=== PATIENT | female | born 1945 | race Caucasian/White ===

== ENCOUNTER → 2016-12-01 | Outpatient (CLI) | payer MEDICARE ==
[2016-12-01 11:39] LABS: Non-African American GFR(MDRD) >60 (>60 ml/min/1.73 sqM)
== END | disposition home or self-care (01) ==
LOC: RADMRIMAIN 11:18
PROVIDERS: ATTEND Urology
DX: Z01.812 Encounter for preprocedural laboratory examination (principal); N28.1 Cyst of kidney, acquired
CPT/HCPCS: 36415; 82565

== ENCOUNTER → 2017-08-29 | Outpatient (CLI) | payer MEDICARE ==
[2017-08-29 11:23] LABS: ALT 27 U/L (9-52); AST 19 U/L (14-36); Alkaline Phosphatase 106 U/L (38-126); Anion Gap 7 mmol/L; Blood Urea Nitrogen 21 mg/dL (7-17); Calcium 9.6 mg/dL (8.4-10.2); Carbon Dioxide 27 mmol/L (22-30); Chloride 107 mmol/L (98-107); Glucose 101 mg/dL (74-99); Non-African American GFR(MDRD) >60 (>60 ml/min/1.73 sqM); Potassium 4.5 mmol/L (3.5-5.1); Sodium 141 mmol/L (137-145); Total Bilirubin 0.6 mg/dL (0.2-1.3); Total Protein 6.8 g/dL (6.3-8.2)
--- NOTE | 2017-08-29 12:21 | XR ---
EXAMINATION TYPE: XR chest 2V DATE OF EXAM: 08/29/2017 COMPARISON: None HISTORY: 72-year-old female right kidney neoplasm TECHNIQUE: Frontal and lateral views FINDINGS: The cardiomediastinal silhouette, aorta, and pulmonary vasculature are within normal limits. There is a rounded convexity projecting over the left atrial shadow on the lateral view of uncertain etiology . This area will be included on the patient's scheduled CT and can be assessed at that time. Otherwis e, lungs and pleural spaces are clear. IMPRESSION: A region of rounded convexity projecting over the left atrial shadow on the lateral view of uncertain etiology. This area will be included on the patient's scheduled CT and can be assessed at that time. Otherwise, lungs appear clear.
--- NOTE | 2017-08-29 13:20 | CT ---
EXAMINATION TYPE: CT abdomen pelvis wo/w con DATE OF EXAM: 08/29/2017 HISTORY: Patient has no complaints at time of study. Follow up study for right side renal CA. Small tumor was removed surgically. CT DLP: 3014.9mGycm Automated Exposure Control for Dose Reduction was Utilized. CONTRAST: CT scan of the abdomen and pelvis is performed without and with IV Contrast, patient injected with 10 0 mL of Omnipaque 300. COMPARISON: CT abdomen pelvis June 05, 2016 FINDINGS: LUNG BASES: No significant abnormality is appreciated. LIVER/GB: Cholecystectomy clips are redemonstrated. Liver is diffusely low dense consistent with fatt y infiltration. PANCREAS: No significant abnormality is seen. SPLEEN: No significant abnormality is seen. ADRENALS: No significant abnormality is seen. KIDNEYS: Noncontrast images show interval partial nephrectomy changes right mid kidney laterally with some linear density or sutures felt present in addition there is increase in left upper to mid pole calcifications centrally with at least 6 calculi identified as on coronal images 90 and 91, a few may be layering dependently in a small subcortical cyst at this level. Postcontrast images show symmetri c cortical medullary uptake and excretion bilaterally without evidence of hydronephrosis. Cystic lesi on measures 1.8 x 1.5 cm on current study image 32 series 5 slightly larger versus prior exam, it demarco s have some thin internal septa and minimally thickened left lateral outer wall appreciated image 32 series 5. There are a few small simple appearing parapelvic cysts centrally lower pole level left kid tl. No new or additional worrisome solid or cystic renal mass is present bilaterally BOWEL: Significant colonic diverticulosis is redemonstrated. A few additional diverticula are seen in the left colon. Oral contrast reaches level of the proximal transverse colon. Mild wall thickening n ear level of hepatic flexure and right colon is present. Finding could be product of interval treatme nt change related to right renal neoplasm. UTERUS/ADNEXA: Uterus is surgically absent. There are few scattered pelvic phleboliths. LYMPH NODES: No greater than 1cm abdominal or pelvic lymph nodes are appreciated. OSSEOUS STRUCTURES: No significant abnormality is seen. OTHER: No significant additional abnormality is seen. IMPRESSION: Interval successful treatment of mid pole lateral right renal lesion or neoplasm. There i s enlarging low dense probable cystic lesion with septation and calcification noted upper to mid pole level slightly inferior aspect left kidney in which additional cystic neoplasm cannot be excluded. S urgical referral advised. Patient may be ablation candidate.
== END | disposition home or self-care (01) ==
LOC: RADCTMAIN 10:33
PROVIDERS: ATTEND Urology
DX: N28.89 Other specified disorders of kidney and ureter (principal); Q63.3 Hyperplastic and giant kidney; C64.1 Malignant neoplasm of right kidney, except renal pelvis; Z88.5 Allergy status to narcotic agent
CPT/HCPCS: 80053; 71020; 74178; 36415; Q9967

== ENCOUNTER → 2018-03-20 | Outpatient (CLI) | payer MEDICARE ==
--- NOTE | 2018-03-20 14:41 | XR ---
EXAMINATION TYPE: XR chest 2V DATE OF EXAM: 03/20/2018 COMPARISON: 08/29/2017 TECHNIQUE: PA and lateral views submitted. HISTORY: Malignant neoplasm of the right kidney FINDINGS: The lungs are clear and there is no pneumothorax, pleural effusion, or focal pneumonia. Heart size is prominent. Atherosclerotic change aorta. Biapical pleural thickening. No overt failure. IMPRESSION: 1. No acute process.
[2018-03-20 14:43] LABS: ALT 27 U/L (9-52); AST 22 U/L (14-36); Albumin 4.1 g/dL (3.5-5.0); Alkaline Phosphatase 96 U/L (38-126); Anion Gap 8 mmol/L; Blood Urea Nitrogen 19 mg/dL (7-17); Calcium 9.3 mg/dL (8.4-10.2); Carbon Dioxide 27 mmol/L (22-30); Chloride 104 mmol/L (98-107); Glucose 86 mg/dL (74-99); Potassium 4.1 mmol/L (3.5-5.1); Sodium 139 mmol/L (137-145); Total Bilirubin 0.6 mg/dL (0.2-1.3); Total Protein 6.6 g/dL (6.3-8.2)
--- NOTE | 2018-03-21 07:48 | CT ---
EXAMINATION TYPE: CT abdomen pelvis wo/w con DATE OF EXAM: 03/20/2018 COMPARISON: 08/29/2017 INDICATION: Malignant neoplasm of right kidney. History of partial nephrectomy of left kidney. DLP: 3106.9 mGycm, Automated exposure control for dose reduction was used. CONTRAST: 100ml mL of Isovue M300. Study performed with Oral Contrast TECHNIQUE: Axial images were obtained from above the diaphragm to the pubic rami in the axial plane a t 5 mm thick sections. Reconstructed images are reviewed on the computer in the coronal plane. FINDINGS: Limited CT sections are obtained the lung bases. The lung bases are clear. Small hiatal hernia is p resent. CT ABDOMEN: There is a periumbilical fat-containing hernia. Liver: On postcontrast imaging there is a 1.9-2.2 cm hypodensity within the right mid lateral liver. This may be a hemangioma present previously which appears essentially isodense with liver on delayed contrast imaging. Spleen: Normal Pancreas: Normal Adrenal glands: The adrenal glands are normal. Gallbladder: Surgically absent Kidneys: No hydronephrosis is present. There is a cyst measuring 2.5 cm on the anterior lateral lef t mid kidney. This has enlarged from comparison study. This Hounsfield unit measurement is -6. Contai ns some calcification as well. These calcifications measure 0.6 and 0.4 cm in size. There several mi d left renal stones present, largest measuring 0.8 cm. The Smaller adjacent measures 0.7 cm. No hydr onephrosis is evident. Tiny exophytic cortical renal cyst is likely present at the inferior medial p ole left kidney measuring 0.7 cm. There appears to be some scarring along the right lateral kidney. Along the lateral margin of the r ight mid kidney is a low-density area with heterogenous appearance. This has an Hounsfield unit measu rement of -60 suggesting a fat component. A recurrent mass is not identified. No right renal stones or hydronephrosis is evident. Aorta: Vascular calcification is within the aorta. Inferior vena cava: Normal. CT PELVIS: Loops of bowel within the abdomen and pelvis are normal. Diverticulosis without acute diverticuliti s is through the sigmoid colon. Study is without oral contrast. Appendix: Not visualized. Urinary bladder: Normal. Genitourinary structures: Uterus and ovaries are not identified. Osseous structures: No suspicious lytic or sclerotic lesions. Degenerative disc changes are through t he lumbar spine. IMPRESSIONS: 1. Cyst containing calcifications along the anterolateral left kidney has enlarged slightly from the comparison of 2017. 2. Nonobstructing left renal stones. 3. Low dense area within the cortex of the right kidney without evidence of recurrent mass. 4. Diverticulosis to the sigmoid colon. 5. Suspected hemangioma lateral right liver. 6. Periumbilical fat-containing hernia. 7. Small hiatal hernia
== END | disposition home or self-care (01) ==
LOC: RADCTMAIN 13:50
PROVIDERS: ATTEND Urology
DX: C64.1 Malignant neoplasm of right kidney, except renal pelvis (principal)
CPT/HCPCS: 80053; 71046; 74178; 36415; Q9967

== ENCOUNTER → 2018-10-01 | Outpatient (CLI) | payer MEDICARE ==
--- NOTE | 2018-10-01 11:24 | XR ---
EXAMINATION TYPE: XR chest 2V DATE OF EXAM: 10/01/2018 COMPARISON: 03/20/2018 HISTORY: 73-year-old female follow-up staging history of right renal cell carcinoma. TECHNIQUE: AP and lateral views FINDINGS: Heart upper limits of normal in size. Aorta and pulmonary vasculature within normal limits. Hazy lowe r lung densities related to overlying soft tissue. There is strandy atelectasis posterior base. No co nsolidation or pleural effusion seen. IMPRESSION: Borderline heart size and chronic appearing changes. No acute process seen.
[2018-10-01 16:42] LABS: Albumin 4.4 g/dL (3.80-4.90); Albumin/Globulin Ratio 2.59 (1.20-2.10); Anion Gap 7.6 mmol/L (4.00-12.00); Calcium 9.7 mg/dL (8.7-10.3); Carbon Dioxide 26.4 mmol/L (21.6-31.8); Globulin 1.7 g/dL (1.6-3.3); Potassium 4.9 mmol/L (3.5-5.5); Total Bilirubin 0.5 mg/dL (0.2-1.2); Total Protein 6.1 g/dL (6.2-8.2)
== END | disposition home or self-care (01) ==
LOC: LABWHC1 09:56
PROVIDERS: ATTEND Urology
DX: C64.1 Malignant neoplasm of right kidney, except renal pelvis (principal)
CPT/HCPCS: 36415; 71046; 80053

== ENCOUNTER → 2019-03-30 | Outpatient (CLI) | payer MEDICARE, OTHER ==
[2019-03-30 11:32] LABS: African American GFR (CKD) >90 (>60 ml/min/1.73 sqM); Blood Urea Nitrogen 23 mg/dL (7-17)
--- NOTE | 2019-03-30 13:03 | CT ---
EXAMINATION TYPE: CT abdomen wo/w con DATE OF EXAM: 03/30/2019 COMPARISON: 03/20/2018 HISTORY: Follow up Rt renal CA CT DLP: 1949 mGycm Automated exposure control for dose reduction was used. TECHNIQUE: Helical acquisition of images was performed from the lung bases through the top of iliac crest to include entire abdomen. CONTRAST: Performed with Oral Contrast and without and with IV Contrast, patient injected with 100 mL of Isovue 300. FINDINGS: LUNG BASES: No significant abnormality is appreciated. LIVER/GB: Liver is low attenuation correlate for hepatic steatosis. There is a partially enhancing le rodrigo involving the right lobe of the liver measuring 3.3 cm most typical of a hemangioma with near co mplete contrast fill-in on delayed images. Postcholecystectomy changes noted. PANCREAS: No significant abnormality is seen. SPLEEN: No significant abnormality is seen. ADRENALS: No significant abnormality is seen. KIDNEYS: Cortical loss involving the right kidney suggestive of previous surgery. There is residual f at attenuation seen with no suspicious enhancing lesion. There is a calcification involving the infundibulum and calyx midpole left kidney anteriorly measurin g 1.4 cm. There is a cystic lesion involving the anterior cortex measuring 3 Hounsfield units compati ble simple cyst. There is some calcification within the cyst. Delayed images there is some contrast f illing within the cysts. Therefore a calyceal diverticulum would be the differential diagnosis. No hy dronephrosis. BOWEL: Small hiatal hernia. LYMPH NODES: No significant abnormality is seen. OSSEOUS STRUCTURES: Multilevel degenerative disc disease noted. FREE AIR: No free air is visualized. OTHER: There is a fat-containing anterior abdominal wall hernia which is been previously noted. IMPRESSION: 1. Postsurgical changes with no suspicious appearing renal mass. 2. Left-sided cyst containing calcification is stable. On delayed images there is some contrast noted within the cyst therefore, calyceal diverticulum in the differential diagnosis. 3. Stable nonobstructing 1.3 cm mid pole left renal calculus. 4. Stable appearing hemangioma right lobe of the liver. 5. Stable-appearing. Local hernia
== END | disposition home or self-care (01) ==
LOC: RADCTMAIN 10:55
PROVIDERS: ATTEND Urology
DX: C64.1 Malignant neoplasm of right kidney, except renal pelvis (principal); N28.1 Cyst of kidney, acquired; N20.0 Calculus of kidney; K44.9 Diaphragmatic hernia without obstruction or gangrene; D18.03 Hemangioma of intra-abdominal structures; Z98.890 Other specified postprocedural states; Z88.5 Allergy status to narcotic agent
CPT/HCPCS: 82565; 84520; 74170; 36415; Q9967

== ENCOUNTER → 2019-06-17 | Outpatient (CLI) | payer MEDICARE, OTHER ==
--- NOTE | 2019-06-17 13:22 | XR ---
EXAMINATION TYPE: XR chest 2V DATE OF EXAM: 06/17/2019 COMPARISON: 10/01/2018 INDICATION: 10/01/2018 TECHNIQUE: Frontal and lateral views of the chest are obtained. FINDINGS: The heart size is normal. The pulmonary vasculature is normal. The lungs are clear. Very small hiatal hernia is likely present. This was evident on the prior exami nation the 03/30/2019 CT abdomen pelvis study. IMPRESSION: 1. No acute pulmonary process. 2. Suspected small hiatal hernia identified on the lateral projection
[2019-06-17 18:59] LABS: African American GFR (CKD) 99.6 (60.0-200.0); Albumin 4.2 g/dL (3.80-4.90); Albumin/Globulin Ratio 2.63 (1.60-3.17); Anion Gap 6.8 mmol/L (4.00-12.00); BUN/Creat Ratio 25.71 Ratio (12.00-20.00); Calcium 9.2 mg/dL (8.7-10.3); Carbon Dioxide 28.2 mmol/L (21.6-31.8); Globulin 1.6 g/dL (1.6-3.3); Potassium 4.7 mmol/L (3.5-5.5); Total Bilirubin 0.5 mg/dL (0.3-1.2); Total Protein 5.8 g/dL (6.2-8.2)
== END | disposition home or self-care (01) ==
LOC: LABWHC1 11:12
PROVIDERS: ATTEND Urology
DX: C64.1 Malignant neoplasm of right kidney, except renal pelvis (principal)
CPT/HCPCS: 36415; 71046; 80053

== ENCOUNTER → 2020-04-04 | Outpatient (CLI) | payer MEDICARE, OTHER ==
--- NOTE | 2020-04-04 09:52 | XR ---
EXAMINATION TYPE: XR chest 2V DATE OF EXAM: 04/04/2020 HISTORY: Shortness of breath. COMPARISON: 06/17/2019 TECHNIQUE: Single view of the chest is submitted. FINDINGS: Demonstrated are scattered senescent parenchymal change. There is no evidence for focal infiltrate. The heart is stable. Hilar and mediastinal structures are within normal limits. Degenerative changes are seen of the dorsal spine. IMPRESSION: 1. Chronic changes without evidence for acute pulmonary disease.
[2020-04-04 16:08] LABS: African American GFR (CKD) 84.8 (60.0-200.0); Albumin 4.2 g/dL (3.80-4.90); Albumin/Globulin Ratio 2.21 (1.60-3.17); Anion Gap 7.2 mmol/L (4.00-12.00); BUN/Creat Ratio 27.5 Ratio (12.00-20.00); Calcium 9.7 mg/dL (8.7-10.3); Carbon Dioxide 26.8 mmol/L (21.6-31.8); Globulin 1.9 g/dL (1.6-3.3); Non-African American GFR(CKD) 73.1 (60.0-200.0); Potassium 5.1 mmol/L (3.5-5.5); Total Bilirubin 0.5 mg/dL (0.3-1.2); Total Protein 6.1 g/dL (6.2-8.2)
== END | disposition home or self-care (01) ==
LOC: LABWHC1 09:29
PROVIDERS: ATTEND Urology
DX: C64.1 Malignant neoplasm of right kidney, except renal pelvis (principal); D49.4 Neoplasm of unspecified behavior of bladder
CPT/HCPCS: 36415; 71046; 80053

== ENCOUNTER → 2021-03-30 | Outpatient (CLI) | payer MEDICARE, OTHER ==
--- NOTE | 2021-03-30 10:28 | XR ---
EXAMINATION TYPE: XR chest 2V DATE OF EXAM: 03/30/2021 COMPARISON: 04/04/2020 HISTORY: Staging renal cancer TECHNIQUE: Frontal and lateral views of the chest are obtained. FINDINGS: Heart size is mildly enlarged. No focal consolidation, pneumothorax or pleural effusion. N o discrete pulmonary nodules on this radiographic study. A CT would provide increased sensitivity. Hy peraeration of lungs and flattening of the diaphragms suggestive of COPD. Degenerative changes of the thoracic spine. IMPRESSION: 1. No acute pulmonary disease. No discrete pulmonary nodules on this radiographic study. CT would pro vide increased sensitivity. 2. COPD.
[2021-03-30 11:15] LABS: ALT 15 U/L (4-34); AST 21 U/L (14-36); African American GFR (CKD) >90 (>60 ml/min/1.73 sqM); Albumin 3.8 g/dL (3.5-5.0); Alkaline Phosphatase 87 U/L (38-126); Anion Gap 3 mmol/L; Blood Urea Nitrogen 19 mg/dL (7-17); Calcium 9.4 mg/dL (8.4-10.2); Carbon Dioxide 30 mmol/L (22-30); Chloride 107 mmol/L (98-107); Glucose 109 mg/dL (74-99); Non-African American GFR(CKD) 89 (>60 ml/min/1.73 sqM); Potassium 4.6 mmol/L (3.5-5.1); Sodium 140 mmol/L (137-145); Total Bilirubin 0.5 mg/dL (0.2-1.3); Total Protein 6.1 g/dL (6.3-8.2)
== END | disposition home or self-care (01) ==
LOC: RADXRMAIN 09:12
PROVIDERS: ATTEND Urology
DX: C64.1 Malignant neoplasm of right kidney, except renal pelvis (principal); J44.9 Chronic obstructive pulmonary disease, unspecified
CPT/HCPCS: 71046; 80053

== ENCOUNTER → 2022-03-26 | Outpatient (CLI) | payer MEDICARE, OTHER ==
--- NOTE | 2022-03-26 10:09 | XR ---
EXAMINATION TYPE: XR chest 2V DATE OF EXAM: 03/26/2022 COMPARISON: 04/09/2021 INDICATION: Renal cancer TECHNIQUE: Frontal and lateral views of the chest are obtained. FINDINGS: The heart size is normal. The pulmonary vasculature is normal. The lungs are clear. No suspicious osseous abnormality. IMPRESSION: 1. No acute pulmonary process.
[2022-03-26 10:33] LABS: African American GFR (CKD) >90 (>60 ml/min/1.73 sqM); Blood Urea Nitrogen 22 mg/dL (7-17); Non-African American GFR(CKD) 80 (>60 ml/min/1.73 sqM)
--- NOTE | 2022-03-26 12:00 | CT ---
EXAMINATION TYPE: CT abdomen w con DATE OF EXAM: 03/26/2022 COMPARISON: CT dated 03/30/2019 HISTORY: Follow up for right sided renal cancer. CT DLP: 1714.4 mGycm Automated exposure control for dose reduction was used. TECHNIQUE: Helical acquisition of images was performed from the lung bases through the top of iliac crest to include entire abdomen. CONTRAST: Performed with Oral Contrast and with IV Contrast, patient injected with 70ml mL of Isovue 300. FINDINGS: LUNG BASES: No significant abnormality is appreciated. LIVER/GB: Previous cholecystectomy. Grossly stable right hepatic lobe ill-defined hypodense lesion, p reviously described as a hemangioma and measuring up to 3.1 cm. PANCREAS: No significant abnormality is seen. SPLEEN: No significant abnormality is seen. ADRENALS: No significant abnormality is seen. KIDNEYS: Postsurgical changes at the lateral aspect of the midpole of the right kidney. No convincing evidence of local tumor recurrence. Left upper pole renal cyst with marginal tiny calcification brittany uring up to 3.5 cm compared to 2.8 cm previously. Dilated left middle calyx with multiple calculi wit hin measuring together 19 mm compared to 15 mm previously. Few bilateral tiny renal cysts. Suspected multiple left parapelvic renal cysts. BOWEL: Questionable very small sliding hiatal hernia, otherwise unremarkable remainder of the stomac h, duodenum and visualized small bowel. Diverticulosis of the visualized portion of the colon. LYMPH NODES: No pathologically enlarged abdominal lymph nodes. OSSEOUS STRUCTURES: Degenerative changes at L3-4, L4-5 and L5-S1. FREE AIR: No free air is visualized. OTHER: Scattered arterial atherosclerotic calcifications. No abdominal fluid. Fat-containing umbilica l hernia. IMPRESSION: No evidence of local tumor recurrence or metastatic disease in the abdomen. Interval changes and inci dental findings as detailed above.
== END | disposition home or self-care (01) ==
LOC: RADCTMAIN 09:38
PROVIDERS: ATTEND Urology
DX: C64.1 Malignant neoplasm of right kidney, except renal pelvis (principal)
CPT/HCPCS: 82565; 84520; 71046; 74160; 36415; Q9967

== ENCOUNTER → 2022-04-11 | Outpatient (CLI) | payer MEDICARE ==
[2022-04-11 17:20] LABS: Anion Gap 10.8 mmol/L (10.00-18.00); Carbon Dioxide 24.2 mmol/L (20.0-27.5); Potassium 4.1 mmol/L (3.5-5.5)
[2022-04-11 17:26] LABS: Basophils # (A) 0.02 X 10*3/uL (0.00-0.10); Basophils % (A) 0.3 %; Eosinophils # (A) 0.23 X 10*3/uL (0.04-0.35); Eosinophils % (A) 2.9 %; HCT 46.7 % (37.2-46.3); HGB 14.6 g/dL (12.0-15.0); Immature Grans, Automated 0.8 %; Lymphocytes % (A) 30.6 %; MCH 28.4 pg (27.0-32.0); MCHC 31.3 g/dL (32.0-37.0); MCV 90.9 fL (80.0-97.0); Mean Platelet Volume 10.1 fL (9.5-12.2); Monocytes # (A) 0.67 X 10*3/uL (0.20-1.00); Monocytes % (A) 8.5 %; NRBC Per 100 WBC 0 /100 WBCS (0.0-0.0); Neutrophils # (A) 4.47 X 10*3/uL (1.80-7.70); Neutrophils % (A) 56.9 %; Platelet Count 286 X 10*3/uL (140-440); RBC 5.14 X 10*6/uL (4.10-5.20); RDW 13.8 % (11.5-14.5); WBC 7.85 X 10*3/uL (4.50-10.00)
== END | disposition home or self-care (01) ==
LOC: LABPAT 10:36
PROVIDERS: ATTEND Urology
DX: Z01.812 Encounter for preprocedural laboratory examination (principal); N20.0 Calculus of kidney
CPT/HCPCS: 80051; 85025

== ENCOUNTER 2022-04-19 09:44 | Day surgery (SDC) | payer MEDICARE, OTHER ==
--- NOTE | 2022-04-19 06:55 | P.GSHP ---
History of Present Illness H&P Date: 04/19/22 Chief Complaint: Left renal calculus The patient is a 76-year-old white female who underwent a right partial nephrectomy in 2016 for renal cell carcinoma. Recent computed tomography scan has shown a 19 mm left renal calculus. She has a history of calcium oxalate kidney stones and passed a calculus in January 2022. She has been offered the options of observation, extracorporal shockwave lithotripsy (ESWL), percutaneous nephrolithotomy (PCNL), and ureteroscopy with laser lithotripsy. She wishes to proceed with the latter. - Constitutional Constitutional: Reports weight gain, Denies chills, Denies fever - Gastrointestinal Gastrointestinal: Denies abdominal pain - Genitourinary (Female) Genitourinary: Reports kidney stones, Denies dysuria, Denies hematuria Past Medical History Past Medical History: Cancer, Hyperlipidemia, Hypertension, Osteoarthritis (OA) Additional Past Medical History / Comment(s): Kidney Stones, hx. kidney cancer 2017-had surg. History of Any Multi-Drug Resistant Organisms: None Reported Past Surgical History: Appendectomy, Cholecystectomy, Hysterectomy, Tonsillectomy, Tubal Ligation Additional Past Surgical History / Comment(s): LITHROTRIPSY, malignant tumor removed from right kidney Past Anesthesia/Blood Transfusion Reactions: No Reported Reaction Additional Past Anesthesia/Blood Transfusion Reaction / Comment(s): PATIENT STATES HAD A PANIC ATTACK WAKING UP FROM ANESTHESIA FEBRUARY 2014. WAS TOLD SHE HAD PREVIOUSLY HAD THE SAME MEDICATION WITH NO PROBLEM, was told received versed,fentanyl,propofol, states has had kidney surg. since then w/no problem Smoking Status: Never smoker - Past Family History Mother Family Medical History: Cancer Father Family Medical History: Cancer Medications and Allergies Home Medications Medication Instructions Recorded Confirmed Type Aspirin 81 mg PO DAILY 03/22/14 04/17/22 History Cholecalciferol [Vitamin D3] 2,000 unit PO DAILY@1200 03/22/14 04/17/22 History Cyanocobalamin [Vitamin B-12] 500 mcg PO DAILY@1200 03/22/14 04/17/22 History Enalapril [Vasotec] 10 mg PO BID 03/22/14 04/17/22 History Fish Oil/Dha/Epa [Fish Oil 1,200 1,000 mg PO DAILY 03/22/14 04/17/22 History mg Fish Oil] Rosuvastatin Calcium [Crestor] 5 mg PO DAILY 04/17/22 04/17/22 History Allergies Allergy/AdvReac Type Severity Reaction Status Date / Time No Known Allergies Allergy Verified 04/17/22 16:04 Surgical - Exam - General well developed, well nourished, no distress - Neck no masses, trachea midline - Respiratory normal respiratory effort - Abdomen Abdomen: soft, non tender, no guarding, no rigid, no rebound - Psychiatric oriented to time, oriented to person, oriented to place, speech is normal, memory intact Results - Imaging CT scan - abdomen: report reviewed, image reviewed Assessment and Plan (1) Kidney stone Status: Acute Code(s): N20.0 - CALCULUS OF KIDNEY SNOMED Code(s): 01948500 Plan: Cystoscopy, left ureteroscopy with Holmium laser lithotripsy and stone basketing, left ureteral stent insertion. The procedure has been reviewed in detail with the patient. She has been made aware of potential risks, which include anesthesia, bleeding, infection, and ureteral injury. Given the stone burden, she is aware of the possible need for secondary treatment.
[~2022-04-19 09:44] MED LIST: DEXAMETHASONE SOD PHOSPHATE 4 MG/ML 1 ML VIAL IV ONE; HYDROmorphone 0.5 MG/0.5 ML SYRINGE IVP PRN; LIDOCAINE 1% (10MG/ML) FOR IV START INTRADERMA PRN; ONDANSETRON 4 MG/2 ML VIAL IVP ONE; ONDANSETRON 4 MG/2 ML VIAL IVP PRN
--- NOTE | 2022-04-19 10:07 | XR ---
EXAMINATION TYPE: XR KUB DATE OF EXAM: 04/19/2022 Comparison: CT abdomen 03/26/2022 Clinical History: 76-year-old female preop left-sided kidney stone Findings: Multiple calcifications are present at the mid pole of the left kidney, aggregate dimension of 2.0 x 1.3 cm. Slight degenerated levoconvex curvature mid to lower lumbar spine. Cholecystectomy clips. Mod erate stool burden. Pelvic phleboliths. Nonobstructive bowel gas pattern. Impression: Focal clustered left midpole renal calculi with aggregate dimension of 2.0 x 1.3 cm.
[2022-04-19] MEDS: LACTATED RINGERS 1,000 ML IV SCH ×2 (12:10→17:09)
[2022-04-19] MEDS ORDERED: SUCCINYLCHOLINE CHLORIDE 200 MG/10 ML VIAL IV ONE (13:43)
[2022-04-19] MEDS ORDERED: LIDOCAINE 2% INJ 20 MG/ML (2 ML VIAL) ONE (13:43)
[2022-04-19] MEDS ORDERED: DEXAMETHASONE SOD PHOSPHATE 4 MG/ML 1 ML VIAL ONE (13:43)
[2022-04-19] MEDS ORDERED: fentaNYL (PF) 50 MCG/ML 2 ML AMP ONE (13:43)
[2022-04-19] MEDS ORDERED: PROPOFOL 10 MG/ML 20 ML VIAL IV ONE (13:43)
[2022-04-19 16:30] VITALS: RESP 16; TEMP 99
--- NOTE | 2022-04-19 16:30 | FL ---
Intraoperative/procedural fluoroscopic services were provided. Total fluoroscopy time is 31.9 seconds with a total of 3 submitted images to PACS. Please see the operative/procedural note for further det ails.
--- NOTE | 2022-04-19 16:38 | P.OP ---
Date of Procedure: 04/19/22 Preoperative Diagnosis: Left renal calculi Postoperative Diagnosis: Same Procedure(s) Performed: Cystoscopy, left ureteroscopy with Holmium laser lithotripsy and stone basketing, left ureteral stent insertion Anesthesia: ZOE Surgeon: Brad Dsouza Estimated Blood Loss (ml): 5 IV fluids (ml): 800 Pathology: other (Calculus fragments, sent for chemical analysis) Condition: stable Disposition: PACU Indications for Procedure: The patient is a 76-year-old white female who underwent a right partial nephrectomy in 2016 for renal cell carcinoma. Recent CT scan has shown multiple left renal calculi collectively measuring approximately 19 mm in diameter. She has a history of calcium oxalate kidney stones and passed a calculus in January 2022. She has been offered the options of observation, extracorporal shockwave lithotripsy (ESWL), percutaneous nephrolithotomy (PCNL), and ureteroscopy with laser lithotripsy. She wishes to proceed with the latter. Operative Findings: Multiple calculi within a mid pole calyx. The calculi were fragmented completely, with the vast majority of fragments removed via stone basketing. Description of Procedure: The patient was taken to the operating room and placed in the dorsolithotomy position, with legs supported in Ezequiel stirrups. The external genitalia was prepped and draped sterilely. The 30 lens was used to introduce the 21-[place]ian [place] cystoscopic sheath through the urethra and into the bladder under direct vision. The bladder was examined in its entirety. Both ureteral orifices were normal anatomic location and configuration, and clear urine effluxed from both. No tumors or foreign bodies were seen. A 0.038 inch Glidewire was passed through the cystoscope. The left ureteral orifice was cannulated, and the Glidewire was advanced up to the renal pelvis. The cystoscope was removed, and an 11/13-Ghanaian ureteral access catheter was passed over the wire, up to the proximal ureter. The flexible ureteroscope was then passed through the ureteral access catheter sheath, up to the left renal pelvis. Each calyx was examined. The calculi were located within a mid pole calyx. The patient was noted to have a bifid renal pelvis. The 272 micron Holmium laser probe was passed through the ureteroscope, and lithotripsy was performed. As the calculi were broken up, fragments were removed using a 1.9-Ghanaian nitinol basket. Virtually all calculus fragments were removed. The few remaining fragments were essentially the size of the laser fiber tip. The ureteroscope was removed. There was no evidence of ureteral trauma. The Glidewire was passed through the ureteral access catheter sheath, which was removed. The Glidewire was backloaded into the cystoscope, which was passed into the bladder. A 24 cm, 6-Ghanaian double-J silicone ureteral stent was placed over the wire. Proper stent positioning was verified fluoroscopically and endoscopically. The bladder was emptied and the cystoscope removed. The patient tolerated the procedure well and was taken to the recovery room in stable condition. [facility] [place] Report: Procedure Acuity: Elective Stone Size and Location: Multiple mid pole calculi measuring approximately 19 mm collectively Ureteral Dilation: No Ureteral Access Sheath Used: Yes Stone Sent for Analysis: Yes All Stones/Fragments Were Removed with a Basket: Yes Complications: No Preoperative Antibiotics Given: Yes Stent Placed: Yes If Stent Placed, Was String Left Attached: No If Stent Placed, When is it to be Removed: 1 week Discharge Medications: None
[2022-04-19 17:28] VITALS: BP 148/76; PULSE 71
[2022-04-19] MEDS ORDERED: ONDANSETRON 4 MG/2 ML VIAL ONE (18:06)
[2022-04-19] MEDS ORDERED: ONDANSETRON 4 MG/2 ML VIAL IVP ONE (18:10)
== END 2022-04-19 18:38 | disposition home or self-care (01) ==
LOC: OR 09:44
PROVIDERS: ATTEND Urology
DX: N20.0 Calculus of kidney (principal); E78.5 Hyperlipidemia, unspecified; I10 Essential (primary) hypertension; M19.90 Unspecified osteoarthritis, unspecified site; Z87.442 Personal history of urinary calculi; Z85.528 Personal history of other malignant neoplasm of kidney; Z90.49 Acquired absence of other specified parts of digestive tract; Z90.710 Acquired absence of both cervix and uterus; Z98.890 Other specified postprocedural states; Z98.51 Tubal ligation status; Z80.9 Family history of malignant neoplasm, unspecified; Z79.82 Long term (current) use of aspirin; Z79.899 Other long term (current) drug therapy
CPT/HCPCS: 82365; 74018; 52356; C1769; J0330; J1100; J0690; J2405; J3010; J2704; J2001

== ENCOUNTER → 2022-05-31 | Outpatient (CLI) | payer MEDICARE, OTHER ==
--- NOTE | 2022-05-31 09:37 | US ---
EXAMINATION TYPE: US kidneys/renal and bladder DATE OF EXAM: 05/31/2022 COMPARISON: CT abdomen March 26, 2022 CLINICAL HISTORY: N20.0 CALCULUS OF KIDNEY. EXAM MEASUREMENTS: Right Kidney: 10.8 x 5.1 x 4.7 cm Left Kidney: 11.9 x 5.3 x 4.5 cm Patient of large body habitus, technically difficult study, limited by patients size. Right Kidney: Postsurgical changes at the lateral pole difficult to see with ultrasound. Parapelvic c ysts, largest measuring 1.1 x 1.1 x 1.1cm, see limitations above Left Kidney: Medial anechoic area measuring 2.3 x 1.9 x 2.3cm. Hyperechoic foci probable stone measur ing 0.7 x 0.5cm. Probable multiple left parapelvic renal cysts. Bladder: wnl as seen Suboptimal study. Incidental 1.1 cm benign thin-walled cyst centrally in the right kidney not clearly seen on recent CT. Bladder not greatly distended. Persistent thin-walled 2.3 cm round cyst upper danny e left kidney corresponds to coronal image 62. Adjacent shadowing calculus measuring around 7 mm rede monstrated. No hydronephrosis bilaterally. Small central parapelvic cysts in the left kidney are agai n seen. IMPRESSION: Left-sided nephrolithiasis redemonstrated. No hydronephrosis seen bilaterally.
--- NOTE | 2022-05-31 10:05 | XR ---
EXAMINATION TYPE: XR KUB DATE OF EXAM: 05/31/2022 9:41 AM CLINICAL HISTORY: Renal calculus TECHNIQUE: Two Upright KUB images of the abdomen are obtained. COMPARISON: Abdominal x-ray April 19, 2022. CT abdomen and pelvis March 26, 2022 FINDINGS: There are roughly 4 adjacent smaller remnant calculi bilaterally mid pole level left kidney measuring up to 4 mm long axis. No right-sided nephrolithiasis. Scattered pelvic phleboliths redemo nstrated. Cholecystectomy clips are redemonstrated. Prominent sclerosis and disc space narrowing mid to lower l umbar spine again seen. Overall nonobstructive bowel gas pattern. IMPRESSION: Interval successful treatment or fragmentation of larger left renal calculi.
== END | disposition home or self-care (01) ==
LOC: RADUSWWP 08:41
PROVIDERS: ATTEND Urology
DX: N20.0 Calculus of kidney (principal)
CPT/HCPCS: 74018; 76770

== ENCOUNTER → 2023-02-28 | Outpatient (CLI) | payer MEDICARE, OTHER ==
--- NOTE | 2023-02-28 09:10 | XR ---
EXAMINATION TYPE: XR chest 2V DATE OF EXAM: 02/28/2023 8:31 AM COMPARISON: Chest radiographs from 03/26/2022 TECHNIQUE: XR chest 2V Frontal and lateral views of the chest. CLINICAL INDICATION:Female, 77 years old with history of C64.1 MALIGNANT NEOPLASM OF RIGHT KIDNEY, EX CEPT R; FINDINGS: Lungs/Pleura: There is no evidence of pleural effusion, focal consolidation, or pneumothorax. Pulmonary vascularity: Unremarkable. Heart/mediastinum: Cardiomediastinal silhouette is unremarkable. Musculoskeletal: No acute osseous pathology. IMPRESSION: 1. No acute cardiopulmonary disease/process. 2. No pulmonary nodules visualized.
[2023-02-28 17:04] LABS: African American GFR (CKD) 88.6 (60.0-200.0); Albumin 4.3 g/dL (3.8-4.9); Albumin/Globulin Ratio 2.05 (1.60-3.17); Anion Gap 11.1 mmol/L (10.00-18.00); BUN/Creat Ratio 33.25 Ratio (12.00-20.00); Blood Urea Nitrogen 25.2 mg/dL (9.0-27.0); Calcium 9.8 mg/dL (8.7-10.3); Globulin 2.1 g/dL (1.6-3.3); Non-African American GFR(CKD) 76.4 (60.0-200.0); Potassium 4.7 mmol/L (3.5-5.5); Total Bilirubin 0.6 mg/dL (0.30-1.20); Total Protein 6.4 g/dL (6.2-8.2)
== END | disposition home or self-care (01) ==
LOC: RADXRMAIN 08:17
PROVIDERS: ATTEND Urology
DX: C64.1 Malignant neoplasm of right kidney, except renal pelvis (principal)
CPT/HCPCS: 71046; 80053

== ENCOUNTER → 2024-04-17 | Outpatient (CLI) | payer MEDICARE, OTHER ==
[2024-04-17 15:28] LABS: ALT 19 U/L (8-44); AST 19 U/L (13-35); Albumin 4.6 g/dL (3.8-4.9); Alkaline Phosphatase 85 U/L (41-126); Blood Urea Nitrogen 22.4 mg/dL (9.0-27.0); Calcium 9.6 mg/dL (8.7-10.3); Carbon Dioxide 26.6 mmol/L (21.6-31.8); Chloride 104 mmol/L (96-109); Glucose 104 mg/dL (70-110); Potassium 4.4 mmol/L (3.5-5.5); Sodium 142 mmol/L (135-145); Total Bilirubin 0.4 mg/dL (0.3-1.2); Total Protein 6.6 g/dL (6.2-8.2)
--- NOTE | 2024-04-17 20:35 | XR ---
EXAMINATION TYPE: XR chest 2V DATE OF EXAM: 04/17/2024 COMPARISON: 02/28/2023 HISTORY: 78-year-old female C6 4.1, right renal cancer TECHNIQUE: Frontal and lateral views FINDINGS: Heart limits of normal in size. Aorta and pulmonary vasculature within normal limits. Some strandy at electasis in the lower lungs. Mild hyperinflation. No consolidation or pleural effusion seen. IMPRESSION: Possible underlying COPD. Clinically correlate. No acute process seen.
== END | disposition home or self-care (01) ==
LOC: RADXRMAIN 09:55
PROVIDERS: ATTEND Urology
DX: C64.1 Malignant neoplasm of right kidney, except renal pelvis (principal)
CPT/HCPCS: 36415; 71046; 80053

== ENCOUNTER → 2024-05-18 | Outpatient (CLI) | payer MEDICARE, OTHER ==
--- NOTE | 2024-06-29 15:34 | CT ---
Patient Lora Giron ID [id number] 1945 Age 78 years Gender F Order # EXAMINATION TYPE: CT abdomen pelvis w con DATE OF EXAM: 05/18/2024 COMPARISON: No comparison available on downtime PACS. INDICATION: Gross hematuria history renal cell cancer DLP: 3553.3 mGycm, Automated exposure control for dose reduction was used. CONTRAST: 100 mL of Isovue 300. Study performed with Oral Contrast TECHNIQUE: Axial images were obtained from above the diaphragm to the pubic rami in the axial plane a t 5 mm thick sections. Reconstructed images are reviewed on the computer in the coronal plane. FINDINGS: Limited CT sections are obtained the lung bases. The lung bases are clear. Small hiatal hernia is p resent. CT ABDOMEN: Liver: Normal Spleen: Normal Pancreas: Normal Adrenal glands: The adrenal glands are normal. Gallbladder: Normal Kidneys: No masses are evident. No hydronephrosis is present. Vertical renal cysts are present on t he left. The largest in the anterior midportion measures 2.3 cm. There are nonobstructing renal stone s in the mid right kidney. The largest measures 0.7 cm. Series 6 image 39. There is a 0.5 cm calcific ation in the distal left ureter moderate hydroureter and hydronephrosis. Some mild right hydroureter is present. This extends to a subtle hyperdensity, series 6 image 57 small obstructing ureteral stone may be present. No suspicious renal masses are identified Aorta: Vascular calcification is within the aorta. Inferior vena cava: Normal. CT PELVIS: There is a periumbilical mesenteric fat-containing hernia. Loops of bowel within the abdomen and pelvis are normal. Scattered diverticuli throughout the sigmoid colon. There are loops of bowel which are incompletely distended or lack oral contrast limiting t heir evaluation. Appendix: Not identified. No dilated tubular structure inflammatory changes are evident. There is a oval density which may have some mildly calcified wall in the right lower quadrant of unce rtain etiology. This measures 2.4 x 2.1 cm. Series 6 image 51, series 10 image 53. Urinary bladder: Unremarkable Genitourinary structures: Uterus and ovaries are not identified. Osseous structures: No suspicious lytic or sclerotic lesions. Iliac joint degenerative changes in low er lumbar spine facet changes are present. IMPRESSION: 1. Obstructing 0.5 cm distal left ureteral stone with moderate left hydronephrosis and hydroureter. 2. Proximal punctate obstructing ureteral stone may be present with mild left hydroureter. 3. Diverticulosis without acute diverticulitis. 4. Oval hypodensity calcified wall right lower quadrant of uncertain etiology.
== END | disposition home or self-care (01) ==
LOC: RADCTMAIN 08:00
PROVIDERS: ATTEND Urology
DX: R31.0 Gross hematuria (principal); C64.1 Malignant neoplasm of right kidney, except renal pelvis; N13.2 Hydronephrosis with renal and ureteral calculous obstruction; K57.90 Diverticulosis of intestine, part unspecified, without perforation or abscess without bleeding
CPT/HCPCS: 74178; 36415; Q9967

== ENCOUNTER 2024-11-27 07:16 | Day surgery (SDC) | payer MEDICARE, OTHER ==
[2024-11-25 15:46] VITALS: BMI 35.6
[2024-11-27] MEDS: IV FLUID CONTINUATION 1,000 ML IV ONE ×3 (07:50→08:14)
[2024-11-27 07:52] VITALS: RESP 16; TEMP 97.8
[2024-11-27] MEDS: LACTATED RINGERS 1,000 ML IV SCH (07:54)
[2024-11-27 08:04] LABS: Glucose,Whole Blood 82 mg/dL (70-110)
[2024-11-27] MEDS ORDERED: LIDOCAINE 1% INJ 10MG/ML (20 ML MDV) ONE (08:18)
[2024-11-27] MEDS ORDERED: PROPOFOL 10 MG/ML 20 ML VIAL IV ONE (08:18)
--- NOTE | 2024-11-27 08:43 | P.PCN ---
Date of Procedure: 11/27/24 Procedure(s) Performed: Brief history: Patient is a pleasant 79-year-old white female scheduled for an elective upper endoscopy as well as colonoscopy as a part of evaluation of epigastric/upper abdominal pain for the last 3 months duration associated with intermittent nausea but no emesis. Loss 30 pound since onset of the symptoms. Started on Protonix 40 mg daily with some help. She is also scheduled for a colonoscopy as a part of screening for colorectal neoplasia Procedure performed: Esophagogastroduodenoscopy with biopsy. Colonoscopy polypectomy Preoperative diagnosis: Epigastric pain/weight loss Screening for colon cancer Anesthesia: MAC Procedure: After informed consent was obtained from the patient was brought into the endoscopy unit and IV sedation was administered by anesthesia under continuous monitoring. Initially upper endoscopy was done. The Olympus GF 160 video endoscope was inserted inserted into the mouth and esophagus intubated without any difficulty and was gradually advanced into the stomach and duodenum and carefully examined. The bulb and second part of the duodenum appeared normal. The scope was then withdrawn into the stomach adequately insufflated with air and upon careful examination the antrum had patchy areas of erythema consistent with gastritis and biopsies were done from this area. Mucosa of the body, cardia and fundus appeared normal. The scope was then withdrawn into the esophagus. The GE junction was located at 40 cm to the incisors. There is a small hiatal hernia noted. There was a 3 mm tongue of Diaz's appearing mucosa proximal to the GE junction that was biopsied.. Rest of the esophagus appeared normal. Patient tolerated the procedure well. At this time the patient continued to remain sedation. Initial digital rectal examination was normal. Olympus CF 160 video colonoscope was then inserted into the rectum and gradually advanced to the cecum without any difficulty. Careful examination was performed as the scope was gradually being withdrawn. The prep was excellent. The cecum, normal-appearing the ascending colon there was a 7 mm polyp that was removed by cold snare polypectomy. Rest of the ascending colon, transverse colon, descending colon normal. The sigmoid colon there was a 5 mm polyp that was removed by cold snare polypectomy. Scattered sigmoid diverticulosis seen. Rest of the sigmoid colon and rectum appeared normal. Retroflexion was performed in the rectum and no lesions were noted. Patient tolerated the procedure well. Impression: 1. Upper endoscopy revealed mild antral gastritis, small hiatal hernia and short segment Diza's esophagus 2. Colonoscopy revealed 7 mm ascending colon polyp and 4 mm sigmoid colon polyp status post cold snare polypectomy and scattered sigmoid diverticulosis Recommendations: Findings of this examination were discussed with the patient as well as Tamara. She was advised to follow-up with the biopsy results. If the biopsy reveals adenoma she can have repeat colonoscopy in 5 years. She will be seen in the office in 2 to 3 weeks. She has persistent epigastric pain and progressive weight loss will consider CT or MRI of the pancreas to evaluate her symptoms further.
[2024-11-27 09:02] VITALS: BP 133/85; PULSE 64
== END 2024-11-27 09:27 | disposition home or self-care (01) ==
LOC: ORWHC2ENDO 07:16
PROVIDERS: ATTEND Internal Medicine Gastroenterology
DX: Z12.11 Encounter for screening for malignant neoplasm of colon (principal); K29.50 Unspecified chronic gastritis without bleeding; K44.9 Diaphragmatic hernia without obstruction or gangrene; K57.30 Diverticulosis of large intestine without perforation or abscess without bleeding; D12.2 Benign neoplasm of ascending colon; K22.70 Barrett's esophagus without dysplasia; K21.00 Gastro-esophageal reflux disease with esophagitis, without bleeding; I10 Essential (primary) hypertension; E78.5 Hyperlipidemia, unspecified; Z87.442 Personal history of urinary calculi; Z79.899 Other long term (current) drug therapy; Z90.49 Acquired absence of other specified parts of digestive tract; Z90.710 Acquired absence of both cervix and uterus
CPT/HCPCS: 45385; 43239; J2003; J2704; 88305

== ENCOUNTER → 2024-12-17 | Outpatient (CLI) | payer MEDICARE, OTHER ==
[2024-12-17 14:48] LABS: Basophils # (A) 0.02 X 10*3/uL (0.00-0.10); Basophils % (A) 0.3 %; Eosinophils # (A) 0.11 X 10*3/uL (0.04-0.35); Eosinophils % (A) 1.5 %; Lymphocytes # (A) 2.12 X 10*3/uL (0.90-5.00); Lymphocytes % (A) 28.3 %; MCH 29.4 pg (27.0-32.0); MCHC 31.3 g/dL (32.0-37.0); MCV 93.9 FL (80.0-97.0); Mean Platelet Volume 10.5 FL (9.5-12.2); Monocytes # (A) 0.64 X 10*3/uL (0.20-1.00); Monocytes % (A) 8.5 %; NRBC Per 100 WBC 0 X 10*3/uL (0.00-0.01); Neutrophils # (A) 4.59 X 10*3/uL (1.80-7.70); Neutrophils % (A) 61.3 %; Platelet Count 285 X 10*3/uL (140-440); RBC 5.11 X 10*6/uL (4.10-5.20); RDW 14.6 % (11.5-14.5); WBC 7.49 X 10*3/uL (4.50-10.00)
[2024-12-17 15:07] LABS: ALT 165 U/L (8-44); AST 82 U/L (13-35); Albumin 4.1 g/dL (3.8-4.9); Albumin/Globulin Ratio 1.95 Ratio (1.60-3.17); Alkaline Phosphatase 365 U/L (41-126); BUN/Creat Ratio 20.62 Ratio (12.00-20.00); Blood Urea Nitrogen 16.5 mg/dL (9.0-27.0); Calcium 9.7 mg/dL (8.7-10.3); Carbon Dioxide 27.4 mmol/L (21.6-31.8); Chloride 106 mmol/L (96-109); Globulin 2.1 g/dL (1.6-3.3); Glucose 92 mg/dL (70-110); Potassium 4.3 mmol/L (3.5-5.5); Sodium 144 mmol/L (135-145); Total Bilirubin 0.6 mg/dL (0.3-1.2); Total Protein 6.2 g/dL (6.2-8.2)
== END | disposition home or self-care (01) ==
LOC: LABWHC1 09:40
PROVIDERS: ATTEND Internal Medicine Gastroenterology
DX: R74.8 Abnormal levels of other serum enzymes (principal)
CPT/HCPCS: 36415; 80053; 85025

== ENCOUNTER 2025-01-06 16:24 | Observation (INO) | payer MEDICARE, OTHER ==
[2025-01-06 19:59] LABS: Basophils # (A) 0.02 10*3/uL (0.00-0.10); Basophils % (A) 0.3 %; HCT 47.3 % (37.2-46.3); HGB 15.8 g/dL (12.0-15.0); Lymphocytes # (A) 1.57 10*3/uL (0.90-5.00); Lymphocytes % (A) 19.8 %; MCH 29.8 pg (27.0-32.0); MCHC 33.4 g/dL (32.0-37.0); MCV 89.2 fL (80.0-97.0); Monocytes # (A) 0.49 10*3/uL (0.20-1.00); Monocytes % (A) 6.2 %; Neutrophils % (A) 73.3 %; Platelet Count 269 10*3/uL (140-440); RDW 14.2 % (11.5-14.5); WBC 7.91 10*3/uL (4.50-10.00)
[2025-01-06 20:08] LABS: ALT 618 U/L (4-34); African American GFR (CKD) >90 (>60 ml/min/1.73 sqM); Albumin 4.8 g/dL (3.5-5.0); Alkaline Phosphatase 698 U/L (38-126); Anion Gap 14 mmol/L; Blood Urea Nitrogen 18 mg/dL (7-17); Calcium 10.5 mg/dL (8.4-10.2); Carbon Dioxide 23 mmol/L (22-30); Chloride 99 mmol/L (98-107); Glucose 127 mg/dL (74-99); Lipase 1085 U/L (23-300); Non-African American GFR(CKD) 86 (>60 ml/min/1.73 sqM); Potassium 3.7 mmol/L (3.5-5.1); Sodium 136 mmol/L (137-145); Total Bilirubin 3.2 mg/dL (0.2-1.3); Total Protein 7.4 g/dL (6.3-8.2)
[2025-01-06 20:18] LABS: AST 819 U/L (14-36)
[2025-01-06] MEDS: ONDANSETRON 4 MG/2 ML VIAL IVP STA ×2 (20:20→22:41)
[2025-01-06] MEDS: HYDROmorphone 1 MG/ML 1 ML SYRINGE IVP STA (20:21)
[2025-01-06] MEDS: LACTATED RINGERS 1,000 ML IV ONE (20:24)
[2025-01-06 20:33] LABS: Appearance,Urine Cloudy (Clear); Bilirubin,Urine 1+ (Negative); Blood,Urine Negative (Negative); Color,Urine Yellow; Glucose,Urine (UA) Negative (Negative); Ketones,Urine 3+ (Negative); Leukocyte Esterase,Urine Negative (Negative); Mucus,Urine Rare /hpf; Nitrite,Urine Negative (Negative); Protein,Urine Trace (Negative); RBC,Urine 5 /hpf (0-5); Specific Gravity,Urine 1.022 (1.001-1.035); WBC,Urine 5 /hpf (0-5)
--- NOTE | 2025-01-06 21:46 | CT ---
EXAMINATION TYPE: CT abdomen pelvis w con DATE OF EXAM: 01/06/2025 9:02 PM COMPARISON: 05/18/2024 CLINICAL INDICATION: Female, 79 years old with history of diffuse abd pain; Upper abdominal pain x 6 months TECHNIQUE: Axial CT abdomen pelvis w con;Sagittal and coronal reformats were created on a separate w orkstation. Contrast used:100 mL of Isovue 300 with IV Contrast, (none if empty) Oral contrast used: without Oral Contrast (none if empty) CT DLP: 1499.4 mGycm, Automated exposure control for dose reduction was used. FINDINGS: LOWER CHEST: Moderate cardiomegaly. ABDOMEN LIVER: Indeterminate right hepatic lobe lesion measuring 32 x 18 mm similar to 05/18/2024. GALLBLADDER AND BILE DUCTS: The gallbladder is surgically absent. Biliary wall thickening also presen t now in today's exam. Interval increase in size of the common bile duct up to 10 mm, previously 5 mm on 05/18/2024. No calcified stone identified within the common duct. PANCREAS: Unremarkable. SPLEEN: Unremarkable. ADRENAL GLANDS: Unremarkable. KIDNEYS AND URETERS: No evidence of hydronephrosis or obstructing renal calculus. The ureters are unr emarkable. Similar left renal cyst measuring 28 mm. No follow-up recommended for the cyst. Nonobstr ucting left renal calculus measuring 5 mm. No right renal calculi. As below the right kidney. Scatter ed subcentimeter probable cyst bilaterally also present and peripelvic cysts. No follow-up recommende d for these lesions. PELVIS BLADDER: No evidence for wall thickening or mass given limitations of exam. REPRODUCTIVE: Unremarkable. ABDOMEN & PELVIS STOMACH AND BOWEL: No evidence of bowel obstruction. Scattered colonic diverticula. PERITONEUM/RETROPERITONEUM: No evidence of pneumoperitoneum or free fluid. Unchanged infarcted fat in the right lower quadrant with calcified wall VASCULATURE: No evidence of aortic aneurysm. MUSCULOSKELETAL: No acute osseous abnormalities. Moderate disc degeneration changes are present throu ghout the thoracolumbar spine. LYMPH NODES: No gross evidence for lymphadenopathy. SOFT TISSUE/ABDOMINAL WALL: Bacterial umbilical hernia measuring up to 29 mm at the neck. IMPRESSION: 1. Biliary wall dilation and wall prominence on today's exam, findings are new from 05/18/2024 furthe r evaluation MRCP recommended. Correlate for signs and symptoms of ascending infection/noncalcified c holedocholithiasis. No additional Evidence for acute abdominal process. 2. Nonobstructing left renal calculi. 3. Fat-containing umbilical hernia. 4. Colonic diverticulosis. 5. Moderate cardiomegaly. [facility], , 01/06/2025 9:44 PM
[2025-01-07] MEDS ORDERED: NALOXONE 0.4 MG/ML 1 ML VIAL IV PRN (00:31)
[2025-01-07] MEDS ORDERED: HYDROmorphone 1 MG/ML 1 ML SYRINGE IVP PRN (00:31)
--- NOTE | 2025-01-07 00:31 | ED ---
Abdominal Pain HPI - General Chief Complaint: Abdominal Pain Stated Complaint: Abd pain Time Seen by Provider: 01/06/25 17:00 Source: patient Mode of arrival: wheelchair Limitations: no limitations - History of Present Illness Initial Comments: 79-year-old female with past medical history of renal cancer, hypertension, hyperlipidemia who presents to the emergency department reporting epigastric pain. States that she has had ongoing epigastric pain since July however it is intermittent in nature. She previously went into [facility] and was found to have elevated liver enzymes. States she was transferred down to [facility] and had a workup done with consultation with the GI doctor. She was discharged home and has been following up with Dr. Hood ever since. Patient is status post cholecystectomy. She had an MRCP done on Saturday for this ongoing issue. Today the patient awoke and had immense pain in the epigastric region. It continued throughout the day which is atypical for the patient. She has had nausea with vomiting. Denies any chest pain. No fevers. No changes in her bowel or bladder habits. No other alleviating, precipitating or modifying factors - Related Data Home Medications Medication Instructions Recorded Confirmed Aspirin 81 mg PO DAILY 03/22/14 11/27/24 Enalapril [Vasotec] 10 mg PO BID 03/22/14 11/27/24 Fish Oil/Dha/Epa [Fish Oil 1,200 1,000 mg PO DAILY 03/22/14 11/27/24 mg Fish Oil] Rosuvastatin Calcium [Crestor] 5 mg PO HS 04/17/22 11/27/24 Famotidine [Pepcid] 10 mg PO DAILY PRN 11/25/24 11/27/24 Multivit with Calcium,Iron,Min 1 each PO DAILY 11/25/24 11/27/24 [Women's Multivitamin] Pantoprazole [Protonix] 40 mg PO DAILY 11/25/24 11/27/24 Pioglitazone [Actos] 30 mg PO DAILY 11/25/24 11/27/24 Allergies Allergy/AdvReac Type Severity Reaction Status Date / Time No Known Allergies Allergy Verified 01/06/25 16:54 Review of Systems ROS Statement: Those systems with pertinent positive or pertinent negative responses have been documented in the HPI. ROS Other: All systems not noted in ROS Statement are negative. Past Medical History Past Medical History: Cancer, Diabetes Mellitus, GERD/Reflux, Hyperlipidemia, Hypertension Additional Past Medical History / Comment(s): Kidney Stones, CONTINUE TO HAVE ABD PAIN 1-2 TIMES A WEEK. RT KIDNEY CANCER-2016 History of Any Multi-Drug Resistant Organisms: None Reported Past Surgical History: Appendectomy, Cholecystectomy, Hysterectomy, Tonsillec grant, Tubal Ligation Additional Past Surgical History / Comment(s): LITHROTRIPSY, COLONOSCOPY, KIDNEY STONE REMOVAL, RT KIDNEY PIECE OF CANCER REMOVED Past Anesthesia/Blood Transfusion Reactions: No Reported Reaction Additional Past Anesthesia/Blood Transfusion Reaction / Comment(s): PATIENT STATES HAD A PANIC ATTACK WAKING UP FROM LAST ANESTHESIA MARCH 23 2014. WAS TOLD SHE HAD PREVIOUSLY HAD THE SAME MEDICATION WITH NO PROBLEM, SLOW TO COME OUT OF ANESTHESIA AFTER LAST KIDNEY STONE PROCEDURE Past Psychological History: No Psychological Hx Reported Smoking Status: Never smoker - Past Family History Mother Family Medical History: Cancer Father Family Medical History: Cancer General Exam Limitations: no limitations Course Vital Signs 01/06/25 01/06/25 16:44 23:47 Temperature 97.9 F 98.2 F Pulse Rate 56 L 64 Respiratory 20 18 Rate Blood Pressure 164/73 156/74 O2 Sat by Pulse 98 95 Oximetry Medical Decision Making - Lab Data Result diagrams: 01/06/25 19:38 01/06/25 19:38 Lab Results 01/06/25 01/06/25 01/06/25 Range/Units 19:38 19:38 19:38 WBC 7.91 (4.50-10.00) 10*3/uL RBC 5.30 H (4.10-5.20) 10*6/uL Hgb 15.8 H (12.0-15.0) g/dL Hct 47.3 H (37.2-46.3) % MCV 89.2 (80.0-97.0) fL MCH 29.8 (27.0-32.0) pg MCHC 33.4 (32.0-37.0) g/dL Plt Count 269 (140-440) 10*3/uL MPV 10.0 (9.5-12.2) fL Immature Gran % (Auto) 0.4 % Neutrophils % 73.3 % Lymphocytes % 19.8 % Monocytes % 6.2 % Eosinophils % 0.0 % Basophils % 0.3 % Immature Gran # 0.03 (0.00-0.04) 10*3/uL Neutrophils # 5.80 (1.80-7.70) 10*3/uL Lymphocytes # 1.57 (0.90-5.00) 10*3/uL Monocytes # 0.49 (0.20-1.00) 10*3/uL Eosinophils # 0.00 L (0.04-0.35) 10*3/uL Basophils # 0.02 (0.00-0.10) 10*3/uL Sodium 136 L (137-145) mmol/L Potassium 3.7 (3.5-5.1) mmol/L Chloride 99 (98-107) mmol/L Carbon Dioxide 23 (22-30) mmol/L Anion Gap 14 mmol/L BUN 18 H (7-17) mg/dL Creatinine 0.64 (0.52-1.04) mg/dL Est GFR (CKD-EPI)AfAm >90 (>60 ml/min/1.73 sqM) Est GFR (CKD-EPI)NonAf 86 (>60 ml/min/1.73 sqM) Glucose 127 H (74-99) mg/dL Lactic Ac Sepsis Rflx Plasma Lactic Acid Henry 2.3 H* (0.7-2.0) mmol/L Calcium 10.5 H (8.4-10.2) mg/dL Total Bilirubin 3.2 H (0.2-1.3) mg/dL AST 819 H (14-36) U/L ALT 618 H (4-34) U/L Alkaline Phosphatase 698 H (38-126) U/L Troponin I (0.000-0.034) ng/mL Total Protein 7.4 (6.3-8.2) g/dL Albumin 4.8 (3.5-5.0) g/dL Lipase 1085 H (23-300) U/L Urine Color Urine Appearance (Clear) Urine pH (5.0-8.0) Ur Specific Carney (1.001-1.035) Urine Protein (Negative) Urine Glucose (UA) (Negative) Urine Ketones (Negative) Urine Blood (Negative) Urine Nitrite (Negative) Urine Bilirubin (Negative) Urine Urobilinogen (<2.0) mg/dL Ur Leukocyte Esterase (Negative) Urine RBC (0-5) /hpf Urine WBC (0-5) /hpf Urine Mucus (None) /hpf 04/09/25 04/09/25 04/09/25 Range/Units 19:38 20:09 20:12 WBC (4.50-10.00) 10*3/uL RBC (4.10-5.20) 10*6/uL Hgb (12.0-15.0) g/dL Hct (37.2-46.3) % MCV (80.0-97.0) fL MCH (27.0-32.0) pg MCHC (32.0-37.0) g/dL Plt Count (140-440) 10*3/uL MPV (9.5-12.2) fL Immature Gran % (Auto) % Neutrophils % % Lymphocytes % % Monocytes % % Eosinophils % % Basophils % % Immature Gran # (0.00-0.04) 10*3/uL Neutrophils # (1.80-7.70) 10*3/uL Lymphocytes # (0.90-5.00) 10*3/uL Monocytes # (0.20-1.00) 10*3/uL Eosinophils # (0.04-0.35) 10*3/uL Basophils # (0.00-0.10) 10*3/uL Sodium (137-145) mmol/L Potassium (3.5-5.1) mmol/L Chloride (98-107) mmol/L Carbon Dioxide (22-30) mmol/L Anion Gap mmol/L BUN (7-17) mg/dL Creatinine (0.52-1.04) mg/dL Est GFR (CKD-EPI)AfAm (>60 ml/min/1.73 sqM) Est GFR (CKD-EPI)NonAf (>60 ml/min/1.73 sqM) Glucose (74-99) mg/dL Lactic Ac Sepsis Rflx Y Plasma Lactic Acid Henry (0.7-2.0) mmol/L Calcium (8.4-10.2) mg/dL Total Bilirubin (0.2-1.3) mg/dL AST (14-36) U/L ALT (4-34) U/L Alkaline Phosphatase (38-126) U/L Troponin I <0.012 (0.000-0.034) ng/mL Total Protein (6.3-8.2) g/dL Albumin (3.5-5.0) g/dL Lipase (23-300) U/L Urine Color Yellow Urine Appearance Cloudy H (Clear) Urine pH 8.0 (5.0-8.0) Ur Specific Carney 1.022 (1.001-1.035) Urine Protein Trace H (Negative) Urine Glucose (UA) Negative (Negative) Urine Ketones 3+ H (Negative) Urine Blood Negative (Negative) Urine Nitrite Negative (Negative) Urine Bilirubin 1+ H (Negative) Urine Urobilinogen 4.0 (<2.0) mg/dL Ur Leukocyte Esterase Negative (Negative) Urine RBC 5 (0-5) /hpf Urine WBC 5 (0-5) /hpf Urine Mucus Rare H (None) /hpf 01/06/25 Range/Units 23:35 WBC (4.50-10.00) 10*3/uL RBC (4.10-5.20) 10*6/uL Hgb (12.0-15.0) g/dL Hct (37.2-46.3) % MCV (80.0-97.0) fL MCH (27.0-32.0) pg MCHC (32.0-37.0) g/dL Plt Count (140-440) 10*3/uL MPV (9.5-12.2) fL Immature Gran % (Auto) % Neutrophils % % Lymphocytes % % Monocytes % % Eosinophils % % Basophils % % Immature Gran # (0.00-0.04) 10*3/uL Neutrophils # (1.80-7.70) 10*3/uL Lymphocytes # (0.90-5.00) 10*3/uL Monocytes # (0.20-1.00) 10*3/uL Eosinophils # (0.04-0.35) 10*3/uL Basophils # (0.00-0.10) 10*3/uL Sodium (137-145) mmol/L Potassium (3.5-5.1) mmol/L Chloride (98-107) mmol/L Carbon Dioxide (22-30) mmol/L Anion Gap mmol/L BUN (7-17) mg/dL Creatinine (0.52-1.04) mg/dL Est GFR (CKD-EPI)AfAm (>60 ml/min/1.73 sqM) Est GFR (CKD-EPI)NonAf (>60 ml/min/1.73 sqM) Glucose (74-99) mg/dL Lactic Ac Sepsis Rflx Plasma Lactic Acid Henry 0.8 (0.7-2.0) mmol/L Calcium (8.4-10.2) mg/dL Total Bilirubin (0.2-1.3) mg/dL AST (14-36) U/L ALT (4-34) U/L Alkaline Phosphatase (38-126) U/L Troponin I (0.000-0.034) ng/mL Total Protein (6.3-8.2) g/dL Albumin (3.5-5.0) g/dL Lipase (23-300) U/L Urine Color Urine Appearance (Clear) Urine pH (5.0-8.0) Ur Specific Carney (1.001-1.035) Urine Protein (Negative) Urine Glucose (UA) (Negative) Urine Ketones (Negative) Urine Blood (Negative) Urine Nitrite (Negative) Urine Bilirubin (Negative) Urine Urobilinogen (<2.0) mg/dL Ur Leukocyte Esterase (Negative) Urine RBC (0-5) /hpf Urine WBC (0-5) /hpf Urine Mucus (None) /hpf Disposition Clinical Impression: Transaminitis, Dilated bile duct, Abdominal pain Disposition: ADMITTED IP TO THIS [facility] Condition: Serious Is patient prescribed a controlled substance at d/c from ED?: No Referrals: Hector Knowles MD [Primary Care Provider] - 1-2 days Time of Disposition: 00:31 Decision to Admit Reason: Admit from EC Decision Date: 01/07/25 Decision Time: 00:31
[2025-01-07] MEDS: SODIUM CHLORIDE 0.9% 1,000 ML IV SCH (01:36)
[2025-01-07 07:09] LABS: Glucose,Whole Blood 78 mg/dL (70-110)
[2025-01-07] MEDS: FAMOTIDINE 20 MG TAB PO SCH (09:11)
[2025-01-07 09:33] LABS: ALT 475 U/L (4-34); AST 348 U/L (14-36); African American GFR (CKD) >90 (>60 ml/min/1.73 sqM); Albumin 3.6 g/dL (3.5-5.0); Albumin/Globulin Ratio 1.7; Alkaline Phosphatase 477 U/L (38-126); Anion Gap 3 mmol/L; Blood Urea Nitrogen 14 mg/dL (7-17); Calcium 9.6 mg/dL (8.4-10.2); Carbon Dioxide 31 mmol/L (22-30); Chloride 104 mmol/L (98-107); Globulin 2.1 g/dL; Glucose 81 mg/dL (74-99); Lipase 128 U/L (23-300); Non-African American GFR(CKD) 88 (>60 ml/min/1.73 sqM); Potassium 3.9 mmol/L (3.5-5.1); Sodium 138 mmol/L (137-145); Total Protein 5.7 g/dL (6.3-8.2)
[2025-01-07 10:21] LABS: INR 1.1 (<1.2); Prothrombin Time 11.8 sec (10.0-12.5)
[2025-01-07 12:11] LABS: Glucose,Whole Blood 72 mg/dL (70-110)
[2025-01-07] MEDS: KETOROLAC 15 MG/ML 1 ML VIAL IVP PRN (12:53)
[2025-01-07] MEDS: HYDROmorphone 2 MG/ML 1 ML SYRINGE IVP PRN (14:15)
[2025-01-07] MEDS: LEVOFLOXACIN 500MG-D5W PMX 500 MG in DEXTROSE/WATER 1 100ML.BAG IVPB SCH (15:20)
[2025-01-07] MEDS: INDOMETHACIN 100 MG SUPPOSITORY RECTAL ONE (15:20)
--- NOTE | 2025-01-07 15:55 | P.CONS ---
History of Present Illness - Reason for Consult Consult date: 01/07/25 Transaminitis, biliary dilation Requesting physician: Isabelle Guzman - Chief Complaint epigastric pain - History of Present Illness This is a pleasant 79-year-old female with a past medical history including renal cancer, hypertension, and hyperlipidemia with ongoing intermittent epigastric pain since July 2024. Paged states epigastric pain initially started August 14 she [address] seen at [facility] and transferred down to [facility] where she had ultrasound done and was seen by cardiology. Since that time she is continue to follow with Dr. Elliott and has follow-up with Frieda Catalan NP gastroenterology. Pain has been intermittent over the last several months. Can last anywhere from 1 to 2 hours sometimes a little less sometimes a little more. She has had elevated liver enzymes associated with this pain in the past. She denies any history of liver disease. She underwent EGD and colonoscopy November 27, 2024 as part of her workup as well. Upper endoscopy with findings of mild antral gastritis and a small hiatal hernia with a short segment of Diaz's esophagus. Colonoscopy revealed a 7 mm ascending colon polyp and sigmoid colon polyp status post cold snare polyp ectomy and some scattered sigmoid diverticulosis. She then followed up postprocedure and was still having intermittent epigastric pain. She underwent MRI of the abdomen with and without contrast [facility] [place] open MRI on January 01, 2025 with findings of cavernous hemangioma within the liver bilateral kidney cysts, fatty infiltration of pancreas, splenic cyst, status postcholecystectomy, mild constipation, levoscoliosis and spondylitic change throughout the spine however reported no CBD dilation. She was post to have a follow-up next week however she started getting the epigastric pain yesterday morning at 930 and it lasted the entire day and it was associated with nausea but no vomiting. Patient came in to the emergency department for further evaluation and was also noted to have elevation in her total bilirubin as well as LFTs and elevated lipase. She had a CT of the abdomen pelvis that reported biliary dilation. Gastroenterology was consulted for further evaluation. Today patient states she has no abdominal pain, no nausea or vomiting. She has had no fevers or chills. She is afebrile. Was recently started on pioglitazone in October of this year is also on Crestor 5 mg but has been on that for couple years now. Review of Systems REVIEW OF SYSTEMS: CARDIOPULMONARY: No chest pain or shortness of breath. Gastrointestinal: Epigastric abdominal pain. Nausea without vomiting. No hematemesis, coffee-ground emesis. No rectal bleeding, or melena. GENITOURINARY: No dysuria or hematuria. MUSCULOSKELETAL: Reports normal range of motion., Joint pain. SKIN: No rashes. No jaundice. ENDOCRINE: No chills, fevers. No excessive weight gain or loss. No polydipsia or polyuria. PSYCHIATRIC: Unremarkable. NEUROLOGY: No change in mental status. Denies dizziness, headache. ENT: Vision unremarkable. CONSTITUTIONAL: No recent weight loss. No fever, chills, night sweats. Past Medical History Past Medical History: Cancer, Diabetes Mellitus, GERD/Reflux, Hyperlipidemia, Hypertension Additional Past Medical History / Comment(s): Kidney Stones, CONTINUE TO HAVE ABD PAIN 1-2 TIMES A WEEK. RT KIDNEY CANCER-2016 History of Any Multi-Drug Resistant Organisms: None Reported Past Surgical History: Appendectomy, Cholecystectomy, Hysterectomy, Tonsillectomy, Tubal Ligation Additional Past Surgical History / Comment(s): LITHROTRIPSY, COLONOSCOPY, KIDNEY STONE REMOVAL, RT KIDNEY PIECE OF CANCER REMOVED Past Anesthesia/Blood Transfusion Reactions: No Reported Reaction Additional Past Anesthesia/Blood Transfusion Reaction / Comm: PATIENT STATES HAD A PANIC ATTACK WAKING UP FROM LAST ANESTHESIA MARCH 23 2014. WAS TOLD SHE HAD PREVIOUSLY HAD THE SAME MEDICATION WITH NO PROBLEM, SLOW TO COME OUT OF ANESTHESIA AFTER LAST KIDNEY STONE PROCEDURE Past Psychological History: No Psychological Hx Reported Additional Psychological History / Comment(s): HAD HAD A PANIC ATTACK 3 TIMES IN THE PAST Smoking Status: Never smoker Past Alcohol Use History: Rare Past Drug Use History: None Reported - Past Family History Mother Family Medical History: Cancer Father Family Medical History: Cancer Medications and Allergies Home Medications Medication Instructions Recorded Confirmed Type Aspirin 81 mg PO DAILY 03/22/14 01/07/25 History Enalapril [Vasotec] 10 mg PO BID 03/22/14 01/07/25 History Rosuvastatin Calcium [Crestor] 5 mg PO DAILY 04/17/22 01/07/25 History Pantoprazole [Protonix] 40 mg PO BID 11/25/24 01/07/25 History Pioglitazone [Actos] 30 mg PO W/LUNCH 11/25/24 01/07/25 History Famotidine [Pepcid] 20 mg PO BID PRN 01/07/25 01/07/25 History hydroCHLOROthiazide [Hydrodiuril] 25 mg PO DAILY PRN 01/07/25 01/07/25 History Allergies Allergy/AdvReac Type Severity Reaction Status Date / Time No Known Allergies Allergy Verified 01/07/25 09:47 Physical Exam Vitals: Vital Signs Temp Pulse Pulse Resp BP BP Pulse Ox 01/07/25 07:10 98.2 F 58 L 16 156/80 98 01/07/25 03:57 67 16 01/07/25 03:52 97.9 F 68 16 164/86 97 01/07/25 02:00 97.5 F L 67 14 143/69 98 01/06/25 23:47 98.2 F 64 18 156/74 95 01/06/25 16:44 97.9 F 56 L 20 164/73 98 Intake and Output 01/06/25 01/07/25 01/07/25 22:59 06:59 14:59 Intake Total 0 Balance 0 Intake: Oral 0 Other: Voiding Method Toilet Weight 90.265 kg 90.265 kg General appearance: The patient is alert, oriented, appears in no acute distress. HET: Head is normocephalic and atraumatic. Conjunctiva pink. Sclera anicteric. Neck: Supple without lymphadenopathy. Trachea midline. Heart: Regular. Lungs: Equal expansion, normal respiratory effort. Abdomen: Soft, nontender, nondistended. Skin: No rashes. No jaundice. Extremities: Normal skin color and turgor. No pedal edema. Neurological: No focal deficits. Alert and oriented x3. Results CBC & Chem 7: 01/06/25 19:38 01/07/25 08:45 Labs: Abnormal Lab Results - Last 24 Hours (Table) 01/06/25 01/06/25 01/06/25 Range/Units 19:38 19:38 19:38 RBC 5.30 H (4.10-5.20) 10*6/uL Hgb 15.8 H (12.0-15.0) g/dL Hct 47.3 H (37.2-46.3) % Eosinophils # 0.00 L (0.04-0.35) 10*3/uL Sodium 136 L (137-145) mmol/L BUN 18 H (7-17) mg/dL Glucose 127 H (74-99) mg/dL Plasma Lactic Acid Henry 2.3 H* (0.7-2.0) mmol/L Calcium 10.5 H (8.4-10.2) mg/dL Total Bilirubin 3.2 H (0.2-1.3) mg/dL AST 819 H (14-36) U/L ALT 618 H (4-34) U/L Alkaline Phosphatase 698 H (38-126) U/L Lipase 1085 H (23-300) U/L Urine Appearance (Clear) Urine Protein (Negative) Urine Ketones (Negative) Urine Bilirubin (Negative) Urine Mucus (None) /hpf 01/06/25 Range/Units 20:12 RBC (4.10-5.20) 10*6/uL Hgb (12.0-15.0) g/dL Hct (37.2-46.3) % Eosinophils # (0.04-0.35) 10*3/uL Sodium (137-145) mmol/L BUN (7-17) mg/dL Glucose (74-99) mg/dL Plasma Lactic Acid Henry (0.7-2.0) mmol/L Calcium (8.4-10.2) mg/dL Total Bilirubin (0.2-1.3) mg/dL AST (14-36) U/L ALT (4-34) U/L Alkaline Phosphatase (38-126) U/L Lipase (23-300) U/L Urine Appearance Cloudy H (Clear) Urine Protein Trace H (Negative) Urine Ketones 3+ H (Negative) Urine Bilirubin 1+ H (Negative) Urine Mucus Rare H (None) /hpf Comments: CT abdomen pelvis with contrast reports biliary wall dilation and wall prominence on today's exam, findings are new from 05/18/2020 for further evalu ation MRCP recommended. Correlate for signs and symptoms of a ascending infection/noncalcified choledochal lithiasis. No additional evidence for acute abdominal process. Nonobstructing left renal calculi. Fat containing umbilical hernia, colonic diverticulosis and moderate cardiomegaly. Assessment and Plan (1) Transaminitis Narrative/Plan: 79-year-old female being worked up by cardiology as well as gastroenterology over the last several months since July 2024 for recurrent intermittent epigastric pain with elevated liver enzymes. Most recent workup with outpatient MRI of the abdomen MRCP reported hemangioma within the liver fatty infiltration of the pancreas, cholecystectomy with no biliary dilation no mention of biliary stones. Now presenting with elevated lipase as well as significant marked elevation in total bilirubin and LFTs compared to previous workup. Need to consider possible choledochal lithiasis or other possible etiology. Recommend ERCP for further evaluation. Procedure discussed with patient including risks and benefits. Patient is agreeable to proceed. Current Visit: Yes Status: Acute Code(s): R74.01 - ELEVATION OF LEVELS OF LIVER TRANSAMINASE LEVELS SNOMED Code(s): 447474192 (2) Dilated bile duct Current Visit: Yes Status: Acute Code(s): K83.8 - OTHER SPECIFIED DISEASES OF BILIARY TRACT SNOMED Code(s): 960140022 (3) Epigastric pain Current Visit: Yes Status: Acute Code(s): R10.13 - EPIGASTRIC PAIN SNOMED Code(s): 69418327 (4) Pancreatitis Current Visit: Yes Status: Acute Code(s): K85.90 - ACUTE PANCREATITIS WITHOUT NECROSIS OR INFECTION, UNSP SNOMED Code(s): 04390420 Plan: 1. Continue symptomatic and supportive care 2. Repeat CBC, CMP, lipase, INR 3. Keep n.p.o. 4. Antiemetics as needed 5. Aggressive IV hydration 6. Pain medication as needed 7. Protonix 40 mg daily for GI prophylaxis 8. Patient scheduled for ERCP today. Risks and benefits discussed with patient. Patient verbalized understanding and is agreeable to proceed. 9. Levaquin and indomethacin ordered to be given 1 hour prior to procedure Thank you for this consultation, we will continue to follow. Dr. Lamar Blake I agree with the dictator's note, documented as a scribe by Jenny Thakkar.
--- NOTE | 2025-01-07 16:11 | P.HPIM ---
History of Present Illness Patient admitted for short of epigastric abdominal pain has been going on since normal on and off. Patient was evaluated in [place] underwent upper GI endoscopy which showed mild antral gastritis and small hiatal hernia at that time with a short segment of Diaz's esophagus patient also had a colonoscopy showed 7 mm ascending colon polyp. Patient this time is found to have elevated liver enzymes patient pain is 1 total bili is 3.2 AST is 819 and ALT 618. Patient underwent MRI with and without contrast on January 01 which showed cavernous hemangioma within the liver and bilateral kidney cysts and fatty infiltration of the pancreas splenic cyst and patient is status post cholecystectomy. Patient had a CT of the abdomen here which reported biliary ductal dilatation. Patient was eval by gastroenterology and is undergoing ERCP today. REVIEW OF SYSTEMS: All other systems are negative except those mentioned in the HPI PHYSICAL EXAMINATION: GENERAL: The patient is alert and oriented x3, not in any acute distress. Well developed, well nourished. HEENT: Pupils are round and equally reacting to light. EOMI. No scleral icterus. No conjunctival pallor. Normocephalic, atraumatic. No pharyngeal erythema. No thyromegaly. CARDIOVASCULAR: S1 and S2 present. No murmurs, rubs, or gallops. PULMONARY: Chest is clear to auscultation, no wheezing or crackles. ABDOMEN: Soft, nontender, nondistended, normoactive bowel sounds. No palpable organomegaly. MUSCULOSKELETAL: No joint swelling or deformity. EXTREMITIES: No cyanosis, clubbing, or pedal edema. NEUROLOGICAL: Gross neurological examination did not reveal any focal deficits. SKIN: No rashes. Assessment and plan -Transaminitis with elevated dilated common bile duct: Etiology is not clear patient will undergo ERCP today. Possibility of choledocholithiasis -Epigastric abdominal pain can be secondary to gastritis -Hypertension for which patient is on enalapril and hydrochlorothiazide which will be continued - Type 2 diabetes mellitus for which patient is Actos/pioglitazone. - Hyperlipidemia for which patient is on rosuvastatin which will be continued DVT prophylaxis: Early ambulation Past Medical History Past Medical History: Cancer, Diabetes Mellitus, GERD/Reflux, Hyperlipidemia, Hypertension Additional Past Medical History / Comment(s): Kidney Stones, CONTINUE TO HAVE ABD PAIN 1-2 TIMES A WEEK. RT KIDNEY CANCER-2017 History of Any Multi-Drug Resistant Organisms: None Reported Past Surgical History: Appendectomy, Cholecystectomy, Hysterectomy, Tonsillectomy, Tubal Ligation Additional Past Surgical History / Comment(s): LITHROTRIPSY, COLONOSCOPY, KIDNEY STONE REMOVAL, RT KIDNEY PIECE OF CANCER REMOVED Past Anesthesia/Blood Transfusion Reactions: No Reported Reaction Additional Past Anesthesia/Blood Transfusion Reaction / Comment(s): PATIENT STATES HAD A PANIC ATTACK WAKING UP FROM LAST ANESTHESIA MARCH 23 2014. WAS TOLD SHE HAD PREVIOUSLY HAD THE SAME MEDICATION WITH NO PROBLEM, SLOW TO COME OUT OF ANESTHESIA AFTER LAST KIDNEY STONE PROCEDURE Past Psychological History: No Psychological Hx Reported Additional Psychological History / Comment(s): HAD HAD A PANIC ATTACK 3 TIMES IN THE PAST Smoking Status: Never smoker Past Alcohol Use History: Rare Past Drug Use History: None Reported - Past Family History Mother Family Medical History: Cancer Father Family Medical History: Cancer Medications and Allergies Home Medications Medication Instructions Recorded Confirmed Type Aspirin 81 mg PO DAILY 03/22/14 01/07/25 History Enalapril [Vasotec] 10 mg PO BID 03/22/14 01/07/25 History Rosuvastatin Calcium [Crestor] 5 mg PO DAILY 04/17/22 01/07/25 History Pantoprazole [Protonix] 40 mg PO BID 11/25/24 01/07/25 History Pioglitazone [Actos] 30 mg PO W/LUNCH 11/25/24 01/07/25 History Famotidine [Pepcid] 20 mg PO BID PRN 01/07/25 01/07/25 History hydroCHLOROthiazide [Hydrodiuril] 25 mg PO DAILY PRN 01/07/25 01/07/25 History Allergies Allergy/AdvReac Type Severity Reaction Status Date / Time No Known Allergies Allergy Verified 01/07/25 09:47 Physical Exam Vitals: Vital Signs Temp Pulse Pulse Resp BP BP Pulse Ox 01/07/25 12:33 98.1 F 57 L 16 138/71 96 01/07/25 07:10 98.2 F 58 L 16 156/80 98 01/07/25 03:57 67 16 01/07/25 03:52 97.9 F 68 16 164/86 97 01/07/25 02:00 97.5 F L 67 14 143/69 98 01/06/25 23:47 98.2 F 64 18 156/74 95 01/06/25 16:44 97.9 F 56 L 20 164/73 98 Intake and Output 01/07/25 01/07/25 01/07/25 06:59 14:59 22:59 Intake Total 0 Balance 0 Intake: Oral 0 Other: Voiding Method Toilet Toilet Weight 90.265 kg Results CBC & Chem 7: 01/06/25 19:38 01/07/25 08:45 Labs: Abnormal Lab Results - Last 24 Hours (Table) 01/06/25 01/06/25 01/06/25 Range/Units 19:38 19:38 19:38 RBC 5.30 H (4.10-5.20) 10*6/uL Hgb 15.8 H (12.0-15.0) g/dL Hct 47.3 H (37.2-46.3) % Eosinophils # 0.00 L (0.04-0.35) 10*3/uL Sodium 136 L (137-145) mmol/L Carbon Dioxide (22-30) mmol/L BUN 18 H (7-17) mg/dL Glucose 127 H (74-99) mg/dL Plasma Lactic Acid Henry 2.3 H* (0.7-2.0) mmol/L Calcium 10.5 H (8.4-10.2) mg/dL Total Bilirubin 3.2 H (0.2-1.3) mg/dL AST 819 H (14-36) U/L ALT 618 H (4-34) U/L Alkaline Phosphatase 698 H (38-126) U/L Total Protein (6.3-8.2) g/dL Lipase 1085 H (23-300) U/L Urine Appearance (Clear) Urine Protein (Negative) Urine Ketones (Negative) Urine Bilirubin (Negative) Urine Mucus (None) /hpf 01/06/25 01/07/25 Range/Units 20:12 08:45 RBC (4.10-5.20) 10*6/uL Hgb (12.0-15.0) g/dL Hct (37.2-46.3) % Eosinophils # (0.04-0.35) 10*3/uL Sodium (137-145) mmol/L Carbon Dioxide 31 H (22-30) mmol/L BUN (7-17) mg/dL Glucose (74-99) mg/dL Plasma Lactic Acid Henry (0.7-2.0) mmol/L Calcium (8.4-10.2) mg/dL Total Bilirubin (0.2-1.3) mg/dL AST 348 H (14-36) U/L ALT 475 H (4-34) U/L Alkaline Phosphatase 477 H (38-126) U/L Total Protein 5.7 L (6.3-8.2) g/dL Lipase (23-300) U/L Urine Appearance Cloudy H (Clear) Urine Protein Trace H (Negative) Urine Ketones 3+ H (Negative) Urine Bilirubin 1+ H (Negative) Urine Mucus Rare H (None) /hpf Thrombosis Risk Factor Assmnt - Choose All That Apply Any of the Below Risk Factors Present?: No Other Risk Factors: Yes Each Risk Factor Represents 3 Points: Age 75 years or older Other congenital or acquired thrombophilia - If yes, enter type in comment: No Thrombosis Risk Factor Assessment Total Risk Factor Score: 3 Thrombosis Risk Factor Assessment Level: Moderate Risk
[2025-01-07] MEDS: ONDANSETRON 4 MG/2 ML VIAL IVP PRN (16:17)
[2025-01-07] MEDS: LACTATED RINGERS 1,000 ML IV ONE ×2 (16:44→17:18)
[2025-01-07] MEDS ORDERED: LIDOCAINE 1% INJ 10MG/ML (20 ML MDV) ONE (16:52)
[2025-01-07] MEDS ORDERED: PROPOFOL 10 MG/ML 20 ML VIAL IV ONE (16:52)
[2025-01-07] MEDS ORDERED: LABETALOL 5 MG/ML VIAL MDV ONE (16:52)
[2025-01-07] MEDS: IOPAMIDOL-300 30ML BTL INJ ONE (17:15)
--- NOTE | 2025-01-07 17:26 | P.PCN ---
Date of Procedure: 01/07/25 Procedure(s) Performed: Brief history: Patient is a 79 year-old pleasant lady scheduled for an ERCP as part of evaluation of intermittent episodes of epigastric abdominal pain, acute biliary pancreatitis and elevated serum transaminases for the last 2 days' duration. Patient has been having the symptoms since July of last year. History of gallbladder surgery several years ago for gallstones. She did have MRCP done on outpatient basis last week which was unremarkable. She was admitted to hospital with elevated bilirubin up to 3.2 and elevated serum transaminases and CAT scan of the abdomen pelvis showed dilated CBD. Because of clinical suspicion for retained common bile duct stone she is scheduled for an ERCP today. Procedure performed: ERCP with biliary sphincterotomy and balloon stone extraction Preoperative diagnoses: Acute biliary pancreatitis with elevated LFTs and jaundice IV sedation per anesthesia: Procedure: After informed consent was obtained from the patient and after the risks benefits and complications including bleeding perforation and pancreatitis explained in detail the patient was brought into the endoscopy unit. The patient was placed in prone position and IV conscious sedation was administered by anesthesia under continuous monitoring. The Olympus side-viewing duodenoscope was then inserted into the mouth and esophagus intubated without any difficulty. The scope was gradually advanced into the stomach and duodenum. The major papilla was identified without any difficulty. Initial cannulation resulted in opacification of the common bile duct that appeared dilated measuring at least 1.5 cm in diameter. A small 5 mm faint filling defect was noted in the proximal CBD. At this time the catheter was exchanged over a guidewire with the biliary sphincterotomy and a biliary sphincterotomy was performed at 11 o'clock position and was extended to 1 cm in length. Following this 11 mm balloon catheter was passed over the guidewire into the proximal CBD, gently inflated and withdrawn and 1 stone was seen exiting the ampulla. The stone measured approximately 5 mm in size. The maneuver was repeated 2 more times and no other stones were seen examined of the ampulla. Occlusion cholangiogram was performed and no other filling defects were noted and the patient tolerated the procedure well Impression: Dilated common bile duct with a 5 mm filling defect in the proximal CBD status post biliary septotomy and balloon stone extraction as described above Pancreatic duct intentionally not cannulated Recommendations: The findings of this examination were discussed with the patient. She will be started on clear liquids today. Monitor LFTs tomorrow. If her symptoms improve and LFTs are better she can be discharged home tomorrow.
--- NOTE | 2025-01-07 17:54 | FL ---
EXAMINATION TYPE: FL ERCP DATE OF EXAM: 01/07/2025 5:31 PM COMPARISON: Pre Operative Images if available both CT/MRI or plain film CLINICAL INDICATION: Female, 79 years old with history of CHECK PATENCY; TECHNIQUE: FL ERCP, multiple fluoroscopic images provided for procedure. DAP: 17.15 mGym2 Gycm2 uGym2 cGycm2 or equivalent. FINDINGS: Fluoroscopic images during endoscopic retrograde cholangiopancreatography demonstrated no evidence fo r extravasation of contrast. Mild dilation of the extra hepatic biliary system without evidence of fi lling defect to suggest choledocholithiasis. IMPRESSION: 1. No evidence for intraoperative complication. 2. Please see the operative/procedural note for further details. [facility] Tanisha Addison, , 01/07/2025 5:52 PM
[2025-01-07 20:18] LABS: Glucose,Whole Blood 99 mg/dL (70-110)
[2025-01-08 07:36] LABS: Glucose,Whole Blood 70 mg/dL (70-110)
[2025-01-08 08:16] LABS: Basophils # (A) 0.02 X 10*3/uL (0.00-0.10); Basophils % (A) 0.3 %; Eosinophils # (A) 0.09 X 10*3/uL (0.04-0.35); Eosinophils % (A) 1.2 %; HCT 40.5 % (37.2-46.3); HGB 12.7 g/dL (12.0-15.0); Lymphocytes # (A) 2.82 X 10*3/uL (0.90-5.00); MCH 29.5 pg (27.0-32.0); MCHC 31.4 g/dL (32.0-37.0); Mean Platelet Volume 10.7 FL (9.5-12.2); Monocytes # (A) 0.72 X 10*3/uL (0.20-1.00); NRBC Per 100 WBC 0 X 10*3/uL (0.00-0.01); Neutrophils # (A) 3.56 X 10*3/uL (1.80-7.70); Neutrophils % (A) 49.2 %; Platelet Count 225 X 10*3/uL (140-440); RBC 4.31 X 10*6/uL (4.10-5.20); RDW 14.8 % (11.5-14.5); WBC 7.23 X 10*3/uL (4.50-10.00)
[2025-01-08 08:21] LABS: ALT 356 U/L (8-44); AST 183 U/L (13-35); Albumin 3.5 g/dL (3.8-4.9); Albumin/Globulin Ratio 2.33 Ratio (1.60-3.17); Alkaline Phosphatase 474 U/L (41-126); Blood Urea Nitrogen 14.7 mg/dL (9.0-27.0); Calcium 8.7 mg/dL (8.7-10.3); Chloride 107 mmol/L (96-109); Globulin 1.5 g/dL (1.6-3.3); Glucose 75 mg/dL (70-110); Potassium 4.1 mmol/L (3.5-5.5); Sodium 141 mmol/L (135-145); Total Bilirubin 0.5 mg/dL (0.3-1.2)
--- NOTE | 2025-01-08 10:55 | P.PN ---
Subjective Progress Note Date: 01/08/25 Principal diagnosis: Choledocholithiasis This is a pleasant 79-year-old female with a past medical history including renal cancer, hypertension, and hyperlipidemia with ongoing intermittent epigastric pain since July 2024. Paged states epigastric pain initially started August 14 she was seen at [facility] and transferred down to [facility] where she had ultrasound done and was seen by cardiology. Since that time she is continue to follow with Dr. Elliott and has follow-up with Frieda Catalan NP gastroenterology. Pain has been intermittent over the last several months. Can last anywhere from 1 to 2 hours sometimes a little less sometimes a little more. She has had elevated liver enzymes associated with this pain in the past. She denies any history of liver disease. She underwent EGD and colonoscopy November 27, 2024 as part of her workup as well. Upper endoscopy with findings of mild antral gastritis and a small hiatal hernia with a short segment of Diaz's esophagus. Colonoscopy revealed a 7 mm ascending colon polyp and sigmoid colon polyp status post cold snare polyp ectomy and some scattered sigmoid diverticulosis. She then followed up postprocedure and was still having intermittent epigastric pain. She underwent MRI of the abdomen with and without contrast [facility]CP [facility] open [facility] on January 01, 2025 with findings of cavernous hemangioma within the liver bilateral kidney cysts, fatty infiltration of pancreas, splenic cyst, status postcholecystectomy, mild constipation, levoscoliosis and spondylitic change throughout the spine however reported no CBD dilation. She was post to have a follow-up next week however she started getting the epigastric pain yesterday morning at 930 and it lasted the entire day and it was associated with nausea but no vomiting. Patient came in to the emergency department for further evaluation and was also noted to have elevation in her total bilirubin as well as LFTs and elevated lipase. She had a CT of the abdomen pelvis that reported biliary dilation. Gastroenterology was consulted for further evaluation. Today patient states she has no abdominal pain, no nausea or vomiting. She has had no fevers or chills. She is afebrile. Was recently started on pioglitazone in October of this year is also on Crestor 5 mg but has been on that for couple years now. January 08, 2025 Patient seen and examined today as a follow-up. No complaints of abdominal pain nausea or vomiting. Yesterday she underwent ERCP with finding of filling defect and underwent balloon sphincterotomy with stone extraction. Patient is afebrile. No leukocytosis, LFTs trending down. Total bilirubin 0.5 down from 1.0 AST 183 down from 348 ALT 356 down from 475 and alkaline phosphatase 474 down from 477. Patient tolerated clear liquid diet. Will advance. Objective - Vital Signs Vital signs: Vital Signs Temp 98.1 F 01/08/25 01:20 Pulse 52 L 01/08/25 01:20 Resp 16 01/08/25 01:20 BP 133/80 01/08/25 01:20 Pulse Ox 95 01/08/25 01:20 FiO2 Intake & Output 01/07/25 01/07/25 01/08/25 06:59 18:59 06:59 Intake Total 0 430 1890 Balance 0 430 1890 Weight 90.265 kg Intake: IV 200 Intake, IV Titration 1650 Amount Sodium Chloride 0.9% 1, 1650 000 ml @ 150 mls/hr IV . Q6H40M [facility] Rx#:[id number] Oral 0 230 240 Other: Voiding Method Toilet Toilet Toilet # Voids 4 - Exam General appearance: The patient is alert, oriented, appears in no acute distress. HET: Head is normocephalic and atraumatic. Conjunctiva pink. Sclera anicteric. Neck: Supple without lymphadenopathy. Abdomen: Soft, nontender, nondistended. Extremities: Normal skin color and turgor. No pedal edema Skin: No rashes, no jaundice Neurological: No focal deficits. Alert and oriented. - Labs CBC & Chem 7: 01/08/25 03:50 01/08/25 03:50 Labs: Abnormal Lab Results - Last 24 Hours (Table) 01/07/25 Range/Units 08:45 Carbon Dioxide 31 H (22-30) mmol/L AST 348 H (14-36) U/L ALT 475 H (4-34) U/L Alkaline Phosphatase 477 H (38-126) U/L Total Protein 5.7 L (6.3-8.2) g/dL Assessment and Plan (1) Choledocholithiasis Narrative/Plan: Patient underwent ERCP with findings of dilated common bile duct with 5 mm filling defect in the proximal common bile duct status post biliary sphincterotomy and balloon stone extraction. LFTs are trending down. Will plan for discharge with follow-up next week. Current Visit: Yes Status: Acute Code(s): K80.50 - CALCULUS OF BILE DUCT W/O CHOLANGITIS OR CHOLECYST W/O OBST SNOMED Code(s): 412442345 (2) Transaminitis Narrative/Plan: 79-year-old female being worked up by cardiology as well as gastroenterology over the last several months since July 2024 for recurrent intermittent e pigastric pain with elevated liver enzymes. Most recent workup with outpatient MRI of the abdomen MRCP reported hemangioma within the liver fatty infiltration of the pancreas, cholecystectomy with no biliary dilation no mention of biliary stones. Now presenting with elevated lipase as well as significant marked elevation in total bilirubin and LFTs compared to previous workup. Need to consider possible choledochal lithiasis or other possible etiology. Recommend ERCP for further evaluation. Procedure discussed with patient including risks and benefits. Patient is agreeable to proceed. Current Visit: Yes Status: Acute Code(s): R74.01 - ELEVATION OF LEVELS OF LIVER TRANSAMINASE LEVELS SNOMED Code(s): 647939724 (3) Dilated bile duct Current Visit: Yes Status: Acute Code(s): K83.8 - OTHER SPECIFIED DISEASES OF BILIARY TRACT SNOMED Code(s): 769391139 (4) Epigastric pain Current Visit: Yes Status: Acute Code(s): R10.13 - EPIGASTRIC PAIN SNOMED Code(s): 58913057 (5) Pancreatitis Current Visit: Yes Status: Acute Code(s): K85.90 - ACUTE PANCREATITIS WITHOUT NECROSIS OR INFECTION, UNSP SNOMED Code(s): 49443588 Plan: 1. Continue symptomatic and supportive care 2. Advance to low-fat diet as tolerated 3. Patient is status post ERCP with stone extraction 4. LFTs are trending down 5. No further gastroenterology intervention at this time Patient is cleared from gastroenterology for discharge. Follow-up next week with gastroenterology for repeat CMP. Thank you for this consultation, we will sign off at this time. Dr. Lamra Blake I agree with the dictator's note, documented as a scribe by Jenny Thakkar.
[2025-01-08 12:09] LABS: Glucose,Whole Blood 81 mg/dL (70-110)
[2025-01-08] MEDS: lisinopriL 20 MG TAB PO SCH (12:54)
[2025-01-08 12:55] VITALS: BP 168/68; PULSE 54; RESP 20; TEMP 98.3
--- NOTE | 2025-01-11 22:27 | P.DS ---
Providers Date of admission: 01/07/25 00:33 Attending physician: Quang Mendoza Consults: 01/07/25 00:31 Consult Physician Urgent Consulting Provider: Tory Blake Consult Reason/Comments: transaminitis, biliary duct dilation Do you want consulting provider notified?: Yes Primary care physician: Hector Benson [facility] Course: Final Diagnosis -Transaminitis with elevated dilated common bile duct: Status post balloon stone extraction -Epigastric abdominal pain can be secondary to gastritis -Hypertension for which patient is on enalapril and hydrochlorothiazide - Type 2 diabetes mellitus for which patient is Actos/pioglitazone. - Hyperlipidemia for which patient is on rosuvastatin Discharge Disposition Patient is stable for discharge home. Patient to continue a low-fat diet on discharge. Patient will continue all same home medications. Patient to follow- up with her PCP Dr. Bui has an appointment scheduled for January 14. Patient to follow-up with GI in the office has an appointment scheduled for January 12. Hospital Course Patient admitted for short of epigastric abdominal pain has been going on since normal on and off. Patient was evaluated in [facility] underwent upper GI endoscopy which showed mild antral gastritis and small hiatal hernia at that time with a short segment of Diaz's esophagus patient also had a colonoscopy showed 7 mm ascending colon polyp. Patient this time is found to have elevated liver enzymes patient pain is 1 total bili is 3.2 AST is 819 and ALT 618. Patient underwent MRI with and without contrast on January 01 which showed cavernous hemangioma within the liver and bilateral kidney cysts and fatty infiltration of the pancreas splenic cyst and patient is status post cholecystectomy. Patient had a CT of the abdomen here which reported biliary ductal dilatation. Patient was eval by gastroenterology. Patient underwent ERCP with finding of filling defect and underwent balloon sphincterotomy with stone extraction. She has tolerated advance diet LFTs are improving and patient will be discharged home to follow-up with GI outpatient she will continue a low-fat diet. Please see medication reconciliation for a list of current medications. Thank you for allowing us to participate in the care of this patient. The impression and plan of care has been dictated by Jennie Dudley Nurse Practitioner as directed. Dr. Ting MD I have performed a history and physical examination and medical decision making of this patient, discussed the same with the dictator, and agree with the dictators assessment and plan as written, documented as a scribe. Based on total visit time, I have performed more than 50% of this visit. Patient Condition at Discharge: Stable Plan - Discharge Summary Discharge Rx Participant: No New Discharge Prescriptions: Continue Enalapril [Vasotec] 10 mg PO BID Aspirin 81 mg PO DAILY Rosuvastatin Calcium [Crestor] 5 mg PO DAILY Pantoprazole [Protonix] 40 mg PO BID Famotidine [Pepcid] 20 mg PO BID PRN PRN Reason: acid reflux Pioglitazone [Actos] 30 mg PO W/LUNCH hydroCHLOROthiazide [Hydrodiuril] 25 mg PO DAILY PRN PRN Reason: swelling Discharge Medication List Aspirin 81 mg PO DAILY 03/22/14 [History] Enalapril [Vasotec] 10 mg PO BID 03/22/14 [History] Rosuvastatin Calcium [Crestor] 5 mg PO DAILY 04/17/22 [History] Pantoprazole [Protonix] 40 mg PO BID 11/25/24 [History] Pioglitazone [Actos] 30 mg PO W/LUNCH 11/25/24 [History] Famotidine [Pepcid] 20 mg PO BID PRN 01/07/25 [History] hydroCHLOROthiazide [Hydrodiuril] 25 mg PO DAILY PRN 01/07/25 [History] Follow up Appointment(s)/Referral(s): Anat Catalan NPC [REFERRING] - 01/12/25 8:15 am Hector Knowles MD [Primary Care Provider] - 01/14/25 9:30 am (Please bring in discharge papers and all medications.) Ambulatory/Diagnostic Orders: Comprehensive Metabolic Panel [LAB.AMB] Time Frame: 3 Days, Location: None Selected Patient Instructions/Handouts: Low Fat Diet (DC) Activity/Diet/Wound Care/Special Instructions: Continue low fat diet Repeat CMP 2 to 3 days Discharge Disposition: HOME SELF-CARE
== END 2025-01-08 16:45 | disposition home or self-care (01) ==
LOC: EC 16:24 → 5NMEDONC 01-07 00:33
PROVIDERS: ADMIT Hospitalist; ATTEND Hospitalist
DX: K80.30 Calculus of bile duct with cholangitis, unspecified, without obstruction (principal); K85.10 Biliary acute pancreatitis without necrosis or infection; R74.01 Elevation of levels of liver transaminase levels; I10 Essential (primary) hypertension; E78.5 Hyperlipidemia, unspecified; E11.9 Type 2 diabetes mellitus without complications; K21.9 Gastro-esophageal reflux disease without esophagitis; Z85.528 Personal history of other malignant neoplasm of kidney; Z90.49 Acquired absence of other specified parts of digestive tract; Z79.82 Long term (current) use of aspirin; Z79.84 Long term (current) use of oral hypoglycemic drugs; Z79.899 Other long term (current) drug therapy
CPT/HCPCS: 96376; 96365; 96375 ×2; 99285; 36415; 80053 ×3; 83605; 83690 ×2; 84484; 85025 ×2; 85610; 81001; 74330; 74177; 43264; 43262; G0378 ×2; J1171 ×2; J2405 ×2; J1956; J2003; J1885; J2704; Q9967; J1920

== ENCOUNTER → 2025-01-25 | Outpatient (CLI) | payer MEDICARE, OTHER ==
[2025-01-25 15:48] LABS: ALT 30 U/L (8-44); AST 30 U/L (13-35); Albumin 3.8 g/dL (3.8-4.9); Albumin/Globulin Ratio 1.81 Ratio (1.60-3.17); Alkaline Phosphatase 149 U/L (41-126); BUN/Creat Ratio 20.17 Ratio (12.00-20.00); Blood Urea Nitrogen 12.1 mg/dL (9.0-27.0); Calcium 9.5 mg/dL (8.7-10.3); Carbon Dioxide 26.5 mmol/L (21.6-31.8); Chloride 107 mmol/L (96-109); Globulin 2.1 g/dL (1.6-3.3); Glucose 97 mg/dL (70-110); Potassium 4.3 mmol/L (3.5-5.5); Sodium 143 mmol/L (135-145); Total Bilirubin 0.3 mg/dL (0.3-1.2); Total Protein 5.9 g/dL (6.2-8.2)
== END | disposition home or self-care (01) ==
LOC: LABWHC1 08:33
PROVIDERS: ATTEND Nurse Practitioner Family
DX: R74.8 Abnormal levels of other serum enzymes (principal)
CPT/HCPCS: 36415; 80053